=== PATIENT | female | born 1930 | race Caucasian/White ===

== ENCOUNTER 2017-03-05 09:19 | Emergency (ER) | payer MEDICARE ==
[2017-03-05 09:46] VITALS: BP 144/49
--- NOTE | 2017-03-05 09:57 | UC ---
Respiratory Complaint HPI - HPI Summary HPI Summary: Pt presents with dry cough, runny nose, and head congestion for 2 days. She tells me that she was at her daughter's house yesterday who was diagnosed with strep throat - pt does not have a sore throat today. She is also worried that she may have the flu and would like testing for this today. She has not taken anything for her discomfort. Denies fever, chills, SOB, chest pain, abdominal pain, n/v/d/c, or body aches. - History of Current Complaint Chief Complaint: UCGeneralIllness Stated Complaint: COUGH SORE THROAT Time Seen by Provider: 03/05/17 09:57 Hx Obtained From: Patient Timing: Constant Severity Initially: Mild Severity Currently: Mild Pain Intensity: 3 Pain Scale Used: 0-10 Numeric Character: Cough: Nonproductive - Allergies/Home Medications Allergies/Adverse Reactions: Allergies Allergy/AdvReac Type Severity Reaction Status Date / Time Cyclobenzaprine Allergy Intermediate Rash Verified 03/05/17 09:47 [From Flexeril] Quinine Allergy Intermediate Rash Verified 03/05/17 09:47 Home Medications: Home Medications Acetaminophen [Eq Pain Reliever] 2 tab PO BEDTIME PRN 03/05/17 [History Confirmed 03/05/17] Ascorbic Acid TAB* [Vitamin C TAB*] 1 tab PO DAILY 03/05/17 [History Confirmed 03/05/17] B-Complex Vitamins [Vitamin B Complex] 1,000 mcg PO DAILY 03/05/17 [History Confirmed 03/05/17] Clopidogrel Bisulfate [Plavix] 1 tab PO DAILY 03/05/17 [History Confirmed ] Multiple Vitamins W/ Minerals [Airborne] 3 dulce maria PO TID PRN 03/05/17 [History Confirmed 03/05/17] PMH/Surg Hx/FS Hx/Imm Hx Endocrine History: Diabetes, Dyslipidemia Cardiovascular History: Cardiac Disease, Hypertension - Surgical History Surgical History: Yes Surgery Procedure, Year, and Place: Lithotripsies [id number]. BILATERAL CATARACT REMOVAL. EYE [id number]. TRIGGER FINGER RELEASE-2006. PARATHYROID SURGERY-2002. 1958-GALLBLADDER REMOVED. 1956-D&C. 1938-T&A. 2000-Insertion of kidney stent; - Family History Known Family History: Positive: Cardiac Disease, Hypertension - Social History Occupation: Retired Lives: With Family Alcohol Use: None Substance Use Type: None Smoking Status (MU): Former Smoker Amount Used/How Often: 4-5 CIGARETTES PER DAY X 30-40 YEARS When Did the Patient Quit Smoking/Using Tobacco: 1988 - Immunization History Most Recent Influenza Vaccination: 10/2016 Review of Systems Constitutional: Negative Skin: Negative Eyes: Negative ENT: Nasal Discharge, Sinus Congestion Respiratory: Cough Cardiovascular: Negative Gastrointestinal: Negative Neurological: Negative Psychological: Negative All Other Systems Reviewed And Are Negative: Yes Physical Exam Triage Information Reviewed: Yes Appearance: Well-Appearing, No Pain Distress, Well-Nourished Vital Signs: Initial Vital Signs Temp 97.3 F 03/05/17 09:38 Pulse 55 03/05/17 09:38 Resp 16 03/05/17 09:38 BP 144/49 03/05/17 09:38 Pulse Ox 98 03/05/17 09:38 Vital Signs Reviewed: Yes Eyes: Positive: Conjunctiva Clear. Negative: Conjunctiva Inflamed, Discharge ENT: Positive: Hearing grossly normal, Pharynx normal, Nasal congestion, Nasal drainage, TMs normal, Uvula midline. Negative: Pharyngeal erythema, TM bulging , TM dull, TM red, Tonsillar swelling, Tonsillar exudate, Hoarse voice, Sinus tenderness Neck: Positive: Supple, Nontender, No Lymphadenopathy Respiratory: Positive: Chest non-tender, Lungs clear, Normal breath sounds, No respiratory distress, No accessory muscle use Cardiovascular: Positive: Pulses Normal Neurological: Positive: Alert Psychological: Positive: Age Appropriate Behavior Skin: Negative: rashes UC Diagnostic Evaluation - Laboratory O2 Sat by Pulse Oximetry: 98 Respiratory Course/Dx - Course Course Of Treatment: POC strep negative. POC influenza negative. Suspect viral illness. Advised to try conservative measures such as rest, fluids, and tylenol as needed for discomfort. - Differential Dx/Diagnosis Provider Diagnoses: Viral illness. Rhinorrhea. Cough Discharge - Discharge Plan Condition: Stable Disposition: HOME Prescriptions: Benzonatate CAP* [Tessalon 100 MG CAP*] 100 mg PO TID PRN #21 cap PRN Reason: Cough Patient Education Materials: Cold Symptoms (ED) Referrals: Romana Parnell MD [Primary Care Provider] - Additional Instructions: If you develop a fever, shortness of breath, chest pain, new or worsening symptoms - please call your PCP or go to the ED. Your blood pressure was high at todays visit. Please see your primary provider within 4 weeks for recheck and re-evaluation.
== END 2017-03-05 10:39 | disposition home or self-care (01) ==
LOC: UCEAST 09:19
DX: B34.9 Viral infection, unspecified (principal); J34.89 Other specified disorders of nose and nasal sinuses; R05 Cough; E11.9 Type 2 diabetes mellitus without complications; E78.5 Hyperlipidemia, unspecified; I11.9 Hypertensive heart disease without heart failure; Z88.8 Allergy status to other drugs, medicaments and biological substances; Z87.891 Personal history of nicotine dependence
CPT/HCPCS: 87502; 87651; 99212; G0463

== ENCOUNTER 2018-05-31 11:18 | Emergency (ER) | payer MEDICARE ==
--- NOTE | 2018-05-31 12:09 | ED ---
Abdominal Pain/Female - HPI Summary HPI Summary: This patient is an 88 year old female presenting to [facility] with a chief complaint of abdominal pain since one month ago. The pain is intermittent and she rates it a 5/10 in severity. She reports nausea, intermittent constipation and intermittent diarrhea. Pt states putting pressure on the area relieves the pain. She had a CT scan 4 days ago and it was negative. She states she does not have an appetite and has lost weight. She says eating makes her pain worse. She was referred here by her PCP Dr. Baird. She has a Hx of gallbladder and appendix removal. - History of Current Complaint Chief Complaint: EDAbdPain Stated Complaint: BELLY ACHE PER PT Time Seen by Provider: 05/31/18 11:47 Hx Obtained From: Patient Onset/Duration: Lasting Weeks, Still Present Timing: Intermittent Episode Lasting Severity Initially: Moderate Severity Currently: Moderate Pain Intensity: 5 Pain Scale Used: 0-10 Numeric Location: Diffuse, Epigastric Radiates: No Allergies/Adverse Reactions: Allergies Allergy/AdvReac Type Severity Reaction Status Date / Time cyclobenzaprine Allergy Rash And Verified 05/31/18 12:12 [From Flexeril] Itching quinine Allergy Rash And Verified 05/31/18 12:12 Itching Home Medications: Home Medications Polyethylene Glycol 3350* [Miralax*] 17 gm PO DAILY PRN 05/31/18 [History Confirmed 05/31/18] PMH/Surg Hx/FS Hx/Imm Hx Endocrine/Hematology History: Reports: Hx Diabetes Cardiovascular History: Reports: Hx Hypertension - ON MEDICATION FOR History: Reports: Hx Kidney Stones - STATES HX OF MANY Musculoskeletal History: Reports: Hx Arthritis Sensory History: Reports: Hx Cataracts - BILATERAL, Hx Contacts or Glasses - GLASSES Denies: Hx Hearing Aid Opthamlomology History: Reports: Hx Cataracts - BILATERAL, Hx Contacts or Glasses - GLASSES - Surgical History Surgery Procedure, Year, and Place: Lithotripsies [id number]. BILATERAL CATARACT REMOVAL. EYE [id number]. TRIGGER FINGER RELEASE-2006. PARATHYROID SURGERY-2002. 1958-GALLBLADDER REMOVED. 1956-D&C. 1938-T&A. 2000-Insertion of kidney stent; Hx Anesthesia Reactions: No Infectious Disease History: No Infectious Disease History: Reports: Hx Shingles Denies: Traveled Outside the [place] in Last 30 Days - Family History Known Family History: Positive: Cardiac Disease, Hypertension - Social History Alcohol Use: None Substance Use Type: Reports: None Smoking Status (MU): Former Smoker Amount Used/How Often: 4-5 CIGARETTES PER DAY X 30-40 YEARS Review of Systems Negative: Fever Positive: Abdominal Pain, Diarrhea, Nausea, Other - Constipation, loss of appetite All Other Systems Reviewed And Are Negative: Yes Physical Exam - Summary Physical Exam Summary: Appearance: The patient is well-nourished in no acute distress and in no acute pain. Skin: The skin is warm and dry and skin color reflects adequate perfusion. HEENT: The head is normocephalic and atraumatic. The pupils are equal and reactive. The conjunctivae are clear and without drainage. Nares are patent and without drainage. Mouth reveals moist mucous membranes and the throat is without erythema and exudate. The external ears are intact. The ear canals are patent and without drainage. The tympanic membranes are intact. Neck: The neck is supple with full range of motion and non-tender. There are no carotid bruits. There is no neck vein distension. Respiratory: Chest is non-tender. Lungs are clear to auscultation and breath sounds are symmetrical and equal. Cardiovascular: Heart is regular rate and rhythm. There is no murmur or rub auscultated. There is no peripheral edema and pulses are symmetrical and equal. Abdomen: The abdomen is soft and non-tender. There are normal bowel sounds heard in all four quadrants and there is no organomegaly palpated. Musculoskeletal: There is no back tenderness noted. Extremities are non-tender with full range of motion. There is good capillary refill. There is no peripheral edema or calf tenderness elicited. Neurological: Patient is alert and oriented to person, place and time. The patient has symmetrical motor strength in all four extremities. Cranial nerves are grossly intact. Deep tendon reflexes are symmetrical and equal in all four extremities. Psychiatric: The patient has an appropriate affect and does not exhibit any anxiety or depression. Triage Information Reviewed: Yes Vital Signs On Initial Exam: Initial Vitals Temp Pulse Resp BP Pulse Ox 97.0 F 67 14 169/87 98 05/31/18 11:33 05/31/18 11:33 05/31/18 11:33 05/31/18 11:33 05/31/18 11:33 Vital Signs Reviewed: Yes Diagnostics - Vital Signs Vital Signs Temp Pulse Resp BP Pulse Ox 05/31/18 11:33 97.0 F 67 14 169/87 98 - Laboratory Result Diagrams: 05/31/18 12:29 05/31/18 12:30 Lab Statement: Any lab studies that have been ordered have been reviewed, and results considered in the medical decision making process. Abdominal Pain Fem Course/Dx - Course Course Of Treatment: Ms. Soni presented complaining of epigastric pain it's been going on for several weeks. She had a CT scan 4 days ago which was negative. She was nontoxic in appearance she stable vital signs and some mild epigastric tenderness. Symptomatically and she improved greatly with IV Protonix and by mouth sucralfate. Labs were unremarkable and I recommended we give her a trial of Prilosec and follow-up with Dr. Parnell. She may need an endoscopy at some point. - Diagnoses Provider Diagnoses: Epigastric pain Discharge - Sign-Out/Discharge Documenting (check all that apply): Patient Departure - Discharge Patient Received Moderate/Deep Sedation with Procedure: No - Discharge Plan Condition: Stable Disposition: HOME Prescriptions: Omeprazole CAP (NF) [Prilosec CAP* 20 MG] 20 mg PO BID #20 cap.dr Patient Education Materials: Epigastric Pain (ED) Referrals: Romana Parnell MD [Primary Care Provider] - 2 Days Additional Instructions: Return to ED with any new or worsening symptoms. - Billing Disposition and Condition Condition: STABLE Disposition: Home - Attestation Statements Document Initiated by Mazin: Yes Documenting Scribe: Thiago Rai Provider For Whom Mazin is Documenting (Include Credential): Jon Carter MD Scribe Attestation: Thiago Chaney, scribed for Jon Carter MD on 05/31/18 at 1420. Scribe Documentation Reviewed: Yes Provider Attestation: The documentation as recorded by the Thiago rausch accurately reflects the service I personally performed and the decisions made by me, Jon Carter MD Status of Scribe Document: Viewed
[2018-05-31] MEDS ORDERED: Pantoprazole IV* 40 MG IV ONE (12:14)
[2018-05-31] MEDS ORDERED: Sucralfate TAB* 1 GM PO ONE (12:14)
[2018-05-31 12:38] LABS: ABS Basophils 0 10^3/ul (0-0.2); ABS Eosinophils 0.2 10^3/ul (0-0.6); ABS Lymphocytes 1.1 10^3/ul (1.0-4.8); ABS Monocytes 0.4 10^3/ul (0-0.8); ABS Neutrophils 3.2 10^3/ul (1.5-7.7); ABS Nucleated RBC 0 10^3/ul; Eosinophil % 3.8 %; Hematocrit 38 % (33-41); Hemoglobin 12.3 g/dL (12.0-16.0); Lymphocyte % 21.6 %; Mean Corpuscular HGB Conc 33 g/dL (31-36); Mean Corpuscular Hemoglobin 28 pg (27-31); Mean Corpuscular Volume 86 fL (80-97); Nucleated Red Blood Cells % 0; Platelet Count 284 10^3/uL (150-450); Red Blood Count 4.37 10^6 /uL (3.70-4.87); Red Cell Distribution Width 14 % (10.5-15); White Blood Count 4.9 10^3/uL (3.5-10.8)
[2018-05-31 12:54] LABS: Albumin/Globulin Ratio 1.4 (1-3); BUN/Creatinine Ratio 21.3 (8-20); C Reactive Protein 2.16 mg/L (<8.01); Calcium 9.7 mg/dL (8.6-10.3); EGFR African American 81.7 (>60); EGFR Non-African American 67.5 (>60); Globulin 2.8 g/dL (2-4); Potassium 4.4 mmol/L (3.5-5.0); Total Bilirubin 0.3 mg/dL (0.2-1.0); Total Protein 6.8 g/dL (6.4-8.9)
[2018-05-31 13:24] LABS: Urine Appearance Cloudy; Urine Bilirubin Negative (Negative); Urine Blood Negative (Negative); Urine Glucose Negative (Negative); Urine Ketones Negative (Negative); Urine Nitrite Negative (Negative); Urine Protein Negative (Negative); Urine Specific Gravity 1.004 (1.010-1.030); Urine Urobilinogen Negative (Negative)
[2018-05-31 13:28] LABS: Urine Color Straw
[2018-05-31 14:09] VITALS: BP 165/78
== END 2018-05-31 14:09 | disposition home or self-care (01) ==
LOC: ED 11:18
DX: R10.13 Epigastric pain (principal); E11.9 Type 2 diabetes mellitus without complications; I10 Essential (primary) hypertension; Z87.442 Personal history of urinary calculi; Z87.891 Personal history of nicotine dependence
CPT/HCPCS: 36415; 80053; 81003; 83605; 83690; 85025; 86140; 96374; 99283; A9270-GY

== ENCOUNTER 2018-09-19 10:05 | Inpatient (IN) | payer MEDICARE ==
--- NOTE | 2018-09-19 10:59 | ED ---
Shortness of Breath - HPI Summary HPI Summary: This pt is an 88 y/o female presenting to [facility] via EMS for SOB today. Pt reports she was doing water aerobics at [facility] when she suddenly became SOB. She has been doing water aerobics since 1988. She notes she got out of the pool and told her instructor about this. Pt is not on oxygen at home. Pt denies any cough , leg pain, calf pain. She does note some chest heaviness in the mid sternum that has resolved since then. Pt denies any pain with breathing. Currently pt is on 4L of O2 via [place] and denies any SOB. Pt denies any fever, chills, erythema of eyes, sore throat, abd pain, nausea, vomiting, dysuria, hematuria, myalgia, edema, rash, or dizziness. Pt sleeps on 2 pillows at night. Denies any weight gain and states she has lost weight instead (pt with hx healing ulcer followed up by Dr. Galvin). Denies any FHx of blood clots. PMHx: stroke in 2011, [place] in 2005, HTN. Pt is a former smoker and quit in 1988. Daughter states pt has had multiple episodes of SOB in the past couple of weeks that has required her to sit down and catch her breath. - History of Current Complaint Chief Complaint: EDShortnessOfBreath Time Seen by Provider: 09/19/18 10:18 Hx Obtained From: Patient, Family/Knife Grinder - Daughter Onset/Duration: Sudden Onset, Still Present Current Severity: Moderate Dyspnea At: Exertion Aggravating Factors: Nothing Alleviating Factors: Nothing Associated Signs & Symptoms: Chest Pain Unrelated to Cough - Allergy/Home Medications Allergies/Adverse Reactions: Allergies Allergy/AdvReac Type Severity Reaction Status Date / Time metoprolol Allergy Severe Excessive Verified 06/06/18 10:47 bradycardia quinine Allergy Severe Rash And Verified 06/06/18 10:47 Itching, Bradycardia cyclobenzaprine Allergy Intermediate Rash And Verified 06/06/18 10:47 [From Flexeril] Itching Home Medications: Home Medications Coenzyme Q10 (NF) [Th Co Q-10] 1 cap PO DAILY 09/19/18 [History Confirmed ] Om3-Dha/Epa/D3/Lutein/Zeazanth [Eye [place] Advantage/Vitam] 1 cap PO BID [History Confirmed 09/19/18] Tetrahydrozoline HCl [Eye Drops] 15 ml BOTH EYES TID 09/19/18 [History Confirmed 09/19/18] metFORMIN* [Glucophage 850 MG TAB *] 850 mg PO BID 09/19/18 [History Confirmed 09/19/18] PMH/Surg Hx/FS Hx/Imm Hx Endocrine/Hematology History: Reports: Hx Diabetes Cardiovascular History: Reports: Hx Hypertension - ON MEDICATION FOR, Hx Myocardial Infarction History: Reports: Hx Kidney Stones - STATES HX OF MANY Musculoskeletal History: Reports: Hx Arthritis Sensory History: Reports: Hx Cataracts - BILATERAL, Hx Contacts or Glasses - GLASSES Denies: Hx Hearing Aid Opthamlomology History: Reports: Hx Cataracts - BILATERAL, Hx Contacts or Glasses - GLASSES Neurological History: Reports: Hx CVA - Surgical History Surgical History: Yes Surgery Procedure, Year, and Place: Lithotripsies [id number]. BILATERAL CATARACT REMOVAL. EYE [id number]. TRIGGER FINGER RELEASE-2006. PARATHYROID SURGERY-2002. 1958-GALLBLADDER REMOVED. 1956-D&C. 1938-T&A. 2000-Insertion of kidney stent; Hx Anesthesia Reactions: No Infectious Disease History: No Infectious Disease History: Reports: Hx Shingles Denies: Traveled Outside the [place] in Last 30 Days - Family History Known Family History: Positive: Cardiac Disease, Hypertension - Social History Alcohol Use: None Substance Use Type: Reports: None Smoking Status (MU): Former Smoker Amount Used/How Often: 4-5 CIGARETTES PER DAY X 30-40 YEARS Review of Systems Negative: Fever, Chills Negative: Erythema Negative: Sore Throat Positive: Chest Pain Positive: Shortness Of Breath. Negative: Cough Negative: Abdominal Pain, Vomiting, Nausea Negative: dysuria, hematuria Negative: Myalgia, Edema Negative: Rash Neurological: Other - NEGATIVE: dizziness All Other Systems Reviewed And Are Negative: Yes Physical Exam - Summary Physical Exam Summary: Constitutional: Well-developed, Well-nourished, Alert. (-) Distressed Skin: Warm, Dry HENT: Normocephalic; Atraumatic Eyes: Conjunctiva normal Neck: Musculoskeletal ROM normal neck. (-) JVD, (-) Stridor, (-) Tracheal deviation Cardio: Rhythm regular, rate normal, Heart sounds normal; Intact distal pulses; The pedal pulses are 2+ and symmetric. Radial pulses are 2+ and symmetric. (-) Murmur Pulmonary/Chest wall: Effort normal. (-) Respiratory distress, (-) Wheezes, (-) Rales Abd: Soft, (-) tenderness, (-) Distension, (-) Guarding, (-) Rebound Rectal Exam: DALILA Ingram, present as female senior benefits specialist. Empty vault. No long blood. Musculoskeletal: (-) Edema Lymph: (-) Cervical adenopathy Neuro: Alert, Oriented x3 Psych: Mood and affect Normal Triage Information Reviewed: Yes Vital Signs On Initial Exam: Initial Vitals Temp Pulse Resp BP Pulse Ox 97.3 F 74 12 162/90 100 09/19/18 10:10 09/19/18 10:10 09/19/18 10:10 09/19/18 10:10 09/19/18 10:10 Vital Signs Reviewed: Yes Diagnostics - Vital Signs Vital Signs Temp Pulse Resp BP Pulse Ox 09/19/18 10:10 97.3 F 74 12 162/90 100 - Laboratory Result Diagrams: 09/19/18 10:50 09/19/18 10:50 Lab Statement: Any lab studies that have been ordered have been reviewed, and results considered in the medical decision making process. - Radiology Chest XR Radiology Interpretation Completed By: Radiologist Summary of Radiographic Findings: IMPRESSION: No evidence for active cardiopulmonary disease. Dr. Hagan has reviewed this report. - EKG 10:20 Cardiac Rate: NL - at 62 bpm EKG Rhythm: Sinus Rhythm Summary of EKG Findings: No STEMI. Re-Evaluation - Re-Evaluation First Eval Re-Evaluation Time: 12:30 Comment: Performed rectal exam with DALILA Ingram, in assistance. Patient with empty vault and no long blood. Course/Dx - Course Assessment/Plan: Pt is an 88 y/o female presenting to [facility] via EMS for SOB today. Pt reports she was doing water aerobics at [facility] when she suddenly became SOB. She has been doing water aerobics since 1988. Pt is not on oxygen at home. Pt denies any cough, leg pain, calf pain. She does note some chest heaviness in the mid sternum that has resolved since then. Test results remarkable for hemoglobin of 10.6, hematocrit of 33, lactic acid of 3.0, troponin of 0.63. Chest XR shows no evidence for active cardiopulmonary disease. In the ED course the pt was given aspirin. Discussed with Dr. Carbajal, invas tech, who reports he wants to make sure pt is cleared by GI before pursuing a cardiac work up. Discussed with Dr. Ocampo, hospitalist, who accepted the pt for admission. - Diagnoses Provider Diagnoses: NSTEMI (non-ST elevated myocardial infarction), Anemia - Physician Notifications Discussed Care of Patient With: Maco Carbajal Time Discussed With Above Provider: 12:14 Instructed by Provider To: Other - Discussed with Dr. Carbajal, invas tech, who reports he wants to make sure pt is cleared by GI before pursuing a cardiac work up. [12:32] Discussed with Dr. Ocampo, hospitalist, who accepted the pt for admission. - Critical Care Time Critical Care Time: 30-74 min - 45 minutes Discharge - Sign-Out/Discharge Documenting (check all that apply): Patient Departure - Admit [place] [facility] Patient Received Moderate/Deep Sedation with Procedure: No - Discharge Plan Condition: Stable Disposition: ADMITTED TO [facility] Referrals: Romana Parnell MD [Primary Care Provider] - - Attestation Statements Document Initiated by Scribe: Yes Documenting Scribe: Veronica Leblanc Provider For Whom Scribe is Documenting (Include Credential): Hakeem Hagan MD Scribe Attestation: Veronica Chaney, scribed for Hakeem Hagan MD on 09/19/18 at 1244. Status of Scribe Document: Viewed
[2018-09-19 11:02] LABS: ABS Eosinophils 0.2 10^3/ul (0-0.6); ABS Lymphocytes 1.4 10^3/ul (1.0-4.8); ABS Monocytes 0.4 10^3/ul (0-0.8); ABS Neutrophils 2.6 10^3/ul (1.5-7.7); Eosinophil % 3.9 %; Hematocrit 33 % (35-47); Hemoglobin 10.6 g/dL (12.0-16.0); Lymphocyte % 31.1 %; Mean Corpuscular HGB Conc 32 g/dL (31-36); Mean Corpuscular Hemoglobin 26 pg (27-31); Mean Corpuscular Volume 80 fL (80-97); Mean Platelet Volume 8.2 fL (7.4-10.4); Platelet Count 248 10^3/uL (150-450); Red Blood Count 4.09 10^6 /uL (3.70-4.87); Red Cell Distribution Width 15 % (10-15); White Blood Count 4.6 10^3/uL (3.5-10.8)
[2018-09-19 11:19] LABS: ALT 13 U/L (7-52); AST 21 U/L (13-39); Albumin/Globulin Ratio 1.5 (1-3); Alkaline Phosphatase 57 U/L (34-104); Anion Gap 10 mmol/L (2-11); BUN/Creatinine Ratio 20.7 (8-20); Blood Urea Nitrogen 17 mg/dL (6-24); CO2 Carbon Dioxide 25 mmol/L (22-32); Calcium 9.3 mg/dL (8.6-10.3); Chloride 104 mmol/L (101-111); EGFR African American 79.4 (>60); EGFR Non-African American 65.6 (>60); Globulin 2.7 g/dL (2-4); Glucose 122 mg/dL (70-100); Sodium 139 mmol/L (135-145); Total Protein 6.7 g/dL (6.4-8.9)
[2018-09-19 11:28] LABS: Troponin I 0.63 ng/mL (<0.04)
[2018-09-19] MEDS ORDERED: Aspirin 81 mg CHEW TAB* 81 MG TAB.CHEW PO ONE (12:16)
[2018-09-19 15:12] LABS: Troponin I 0.59 ng/mL (<0.04)
--- NOTE | 2018-09-19 15:29 | ECHO ---
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 Abnormal EKG. Aortic Valve Disorder. History: Cerebrovascular accident. PMH: Myocardial infarction. Risk factors: Former tobacco use. Hypertension. Diabetes mellitus. Conclusions Summary: - Left ventricle: There is moderate concentric hypertrophy. Systolic function is mildly reduced. The estimated ejection fraction is 45-50%. Systolic function is worse from the study of May 2016. Features are consistent with a pseudonormal left ventricular filling pattern, with concomitant abnormal relaxation and increased filling pressure (grade 2 diastolic dysfunction). - Left atrium: The atrium is severely dilated. - Mitral valve: The findings are consistent with mild stenosis. There is moderate regurgitation. - Aortic valve: The findings are consistent with severe stenosis. Stenosis severity has increased in comparison with the study of May 2016. There is mild regurgitation. The peak systolic velocity is 5 m/sec. The mean systolic gradient is 61.0 mm Hg. The peak systolic gradient is 100.0 mm Hg. The LVOT to aortic valve VTI ratio is 0.2. The valve area by the peak velocity method is 0.66 cm^2. The valve area by the mean velocity method is 0.7 cm^2. - Tricuspid valve: There is mild regurgitation. - Pulmonic valve: There is trace to mild regurgitation. Recommendations: Decrease in ejection fraction from 60-65% last time with new wall motion abormalities and progression in aortic stenosis. Consider catheterization for possible TAVR and PCI. Study data: Transthoracic echocardiogram. Procedure: Transthoracic echocardiography was performed. Image quality was good. Complete 2D, spectral Doppler, and color flow Doppler. Location: Emergency department. Patient status: Inpatient. Patient room number: ED-10. The previous study was not available, so comparison is made to the report of May 2016. Rhythm: Normal sinus rhythm with PAC's. Findings Left ventricle: The cavity size is normal. There is moderate concentric hypertrophy. Systolic function is mildly reduced. The estimated ejection fraction is 45-50%. Systolic function is worse from the study of May 2016. Regional wall motion abnormalities: Hypokinesis of the mid-apical anterior, mid anteroseptal, mid-apical inferior, basal-mid inferolateral, mid anterolateral, apical septal, apical lateral, and apical myocardium. Features are consistent with a pseudonormal left ventricular filling pattern, with concomitant abnormal relaxation and increased filling pressure (grade 2 diastolic dysfunction). Right ventricle: The cavity size is normal. Systolic function is normal. Systolic pressure is within the normal range. Ventricular septum: Thickness is mildly increased. Left atrium: The atrium is severely dilated. Right atrium: The atrium is at the upper limits of normal in size. Mitral valve: The posterior mitral valve annulus appears moderately calcified. The findings are consistent with mild stenosis. There is moderate regurgitation. Aortic valve: Not well visualized. The leaflets are moderately calcified. The findings are consistent with severe stenosis. Stenosis severity has increased in comparison with the study of May 2016. There is mild regurgitation. Tricuspid valve: The leaflets are normal thickness. There is no evidence of stenosis. There is mild regurgitation. Pulmonic valve: The leaflets are normal thickness. There is no evidence of stenosis. There is trace to mild regurgitation. Aorta: Ascending aorta: The ascending aorta is appears normal. The aortic root appears normal. The aortic arch appears normal. Pericardium: There is no significant pericardial effusion. Pulmonary arteries: The main pulmonary artery is normal-sized. Systolic pressure is within the normal range. Systemic veins: Inferior vena cava: The vessel is normal in size. There is (>= 50%) respiratory change in the IVC dimension. Measurements Left ventricle Value Ref Aortic valve Value Ref NOE, LAX 4.0 cm 3.8 - 5.2 Leni diam, ED 2.2 cm ----- ESD, LAX 2.5 cm 2.2 - 3.5 Peak v, S 5 m/sec ----- FS, LAX 37 % 27 - 45 VTI, S 126.0 cm ----- PW, ED, LAX (H) 1.4 cm 0.6 - 0.9 Mean grad, S 61.0 mm Hg ----- FS 37 % 27 - 45 Peak grad, S 100.0 mm Hg ----- PW, ED (H) 1.4 cm 0.6 - 0.9 LVOT/AV, VTI ratio 0.2 ----- E', lat leni, TDI (L) 4.6 cm/sec >=10.0 MELISA, VTI 0.62 cm^2 --- -- E/e', lat leni, 20 MELISA, Vmax 0.66 cm^2 ----- TDI E', med leni, TDI (L) 3.9 cm/sec >=7.0 Mitral valve Value Ref E/e', med leni, 24 Peak E 0.92 m/sec ----- TDI Peak A 1.85 m/sec ----- E', avg, TDI 4.3 cm/sec Decel time 384 ms ----- E/e', avg, TDI (H) 22 <=14 PHT 186 ms --- -- Mean grad, D 3.0 mm Hg ----- LVOT Value Ref Peak grad, D 14.0 mm Hg ----- Diam, S 2.00 cm Peak E/A ratio 0.5 ----- Area 3.1 cm^2 MVA, PHT 1.2 cm^2 ----- Peak mickie, S 1.05 m/sec VTI, S 25.0 cm Pulmonic valve Value Ref Mean grad, S 3 mm Hg Peak v, S 1.32 m/sec ----- SV 80 ml Peak grad, S 7.0 mm Hg ----- SV/bsa 51 ml/m^2 DC v, ED 0.92 m/sec ----- Ventricular septum Value Ref Tricuspid valve Value Ref IVS, ED (H) 1.4 cm 0.6 - 0.9 TR peak v 2.42 m/sec <=2.8 Peak RV-RA grad, S 23 mm Hg ----- Right ventricle Value Ref AW thickness, ED (H) 0.8 cm 0.1 - 0.5 Aortic root Value Ref NOE, LAX 3.0 cm Root diam 2.7 cm <3.8 NOE minor ax, A4C (H) 3.8 cm 1.9 - 3.5 mid Ascending aorta Value Ref Pressure, S 26 mm Hg AAo AP diam, S 3.5 cm ----- Left atrium Value Ref Aortic arch Value Ref AP dim, ES (H) 4.40 cm 2.70 - Arch diam 1.9 cm ----- 3.80 ML dim, A4C 3.9 cm Decending aorta Value Ref SI dim, A4C 6.3 cm Maggy peak mickie 0.74 m/sec ----- Vol/bsa, ES, 1-p (H) 45 ml/m^2 11 - 40 A4C Pulmonary artery Value Ref Vol/bsa, ES, A/L (H) 68 ml/m^2 16 - 34 Pressure, S 19.0 mm Hg ----- Right atrium Value Ref Inferior vena cava Value Ref SI dim, ES 5.3 cm 3.4 - 5.3 Diam 1.7 cm ----- ML dim, ES, A4C 4.1 cm 2.6 - 4.4 SI dim, ES, A4C 5.3 cm 3.4 - 5.3 Estimated RAP 3 mm Hg Legend: (L) and (H) srinivas values outside specified reference range. Prepared and electronically signed by Maco Carbajal MD 09/19/2018 15:29
--- NOTE | 2018-09-19 15:57 | CONS ---
CC: Dr. Romana Parnell; Dr. Merida * CARDIOLOGY CONSULTATION: DATE OF CONSULT: 09/19/18 PATIENT OF: Dr. Romana Parnell and Dr. Merida. REASON FOR EVALUATION: Shortness of breath, elevation in troponin, abnormal EKG. HISTORY OF PRESENT ILLNESS: This is a very pleasant 88-year-old woman who lives on her own and is surprisingly active given her age. She is accompanied by her daughter, Claudia, and her son-in-law, Antonio. She reports that she has been fairly active, but limited by achiness in her legs and walking less over some unspecified period of time. Also she says over the last week, she has had a few episodes of feeling shortness of breath with exertion. Two episodes occurred over the last 2 weeks where she was exerting herself in the house cleaning and noticed that she was short of breath and felt her heart beating fast and regular. She stopped for 10 minutes and her symptoms resolved and she was able to resume her activities. Today, she was in her water aerobics class at the , she said she goes 3 times a week. She says Mondays and Fridays are more vigorous days. She usually spends an hour and a half to 2 hours in the pool. She warms up with walking before the class, the [place] on Mondays, and does some walking on Wednesdays. Today is a more vigorous exercise. She said during the pool activity, she developed increased heart rate, shortness of breath, and asked to leave the pool. She got out of the pool and sat in the locker room for a few minutes, and because of ongoing symptoms, her daughter was called to call the ambulance. By the time the ambulance crew arrived, she was feeling better. She was brought to the emergency room. She was noted to have some sinus rhythm with diffuse ST depressions as well as an elevated troponin of 0.63 at 10:50 a.m. Also, her lactic acid was high at 3. She denies syncope or chest pain. No orthopnea or peripheral edema. She does report the legs are achy and cool. She denies previous history of arrhythmias. PAST MEDICAL HISTORY: Significant for aortic stenosis which was felt to be critical back in 2017, but she was asymptomatic until recently. She also has a history of coronary artery disease with a [id number] IN in the setting of urosepsis in 2000. She had a stress test in 2014 which revealed no evidence of ischemia. She has a history of diabetes, hypertension, hyperlipidemia, and gastric ulcer documented by endoscopy in June [address] Galvin, it was felt that that was healing. She denies any hematemesis or hematochezia. No nausea or vomiting. She did have weight loss at that time of 15 pounds. PAST SURGICAL HISTORY: Includes parathyroidectomy in 2002, lithotripsy in 2007 , cholecystectomy in 1958, trigger finger release in 2006, cataract in 2007, D and C in 1956, appendectomy in 1958, blepharoplasty in 2009, tonsillectomy in 1938, kidney stent in 2000, D and C in 1956 for miscarriage. ALLERGIES: Include FLEXERIL and QUININE which results in bradycardia and METOPROLOL results in bradycardia. SOCIAL HISTORY: She is , lives alone. She drives locally. She had a brother who of liver disease and amyloid. She had 4 children, 2 are and 2 are alive. No premature coronary artery disease. She denies alcohol. She denies caffeine use. 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 REVIEW OF SYSTEMS: Review of systems x10 was negative except as above. PHYSICAL EXAM: She is a well-developed, well-nourished woman who appears younger than her stated age. Blood pressure 126/89, pulse is 79, O2 sats 98% on 2 L. No significant JVD. Carotids 2+ without bruits, although she has a history of carotid disease. No cervical adenopathy. No thyromegaly. Extraocular muscles intact. Arcus senilis. Carotids delayed and diminished. Cardiac Exam: S1, S2 with a 4/6 systolic ejection murmur heard at the apex radiating across the precordium, single S2. Chest was clear with no CVAT. There was kyphosis. Abdominal Exam: Bowel sounds present, nontender. Femoral pulses diminished with a left femoral bruit. Distal pulses were absent on the left and 1+ on the right. No edema. Negative Homans sign. Motor strength is 5 /5 bilaterally. Deep tendon reflexes 2/4. Alert and oriented x3. DIAGNOSTIC STUDIES/LAB DATA: EKG as mentioned above revealed sinus rhythm, poor R- wave progression, diffuse inferolateral ST depressions, somewhat more pronounced compared to June. Chest x-ray revealed no evidence for active cardiopulmonary disease. Her nuclear stress test, pharmacologic, from April 2014 revealed no evidence of ischemia or infarct. Her echo from May 2016 revealed moderate LVH, EF of 60% to 65%, left atrium was severely dilated, right atrium moderately dilated, critical aortic stenosis , mild MR, mild mitral stenosis, mild to moderate pulmonary hypertension, mild to moderate pulmonary regurgitation. Compared to 05/17/15, the had advanced from 0 to critical. Her peak velocity was 5.5 m/second across the aortic valve. LVOT velocity was 1.4. Valve area was 0.81. PA pressure was 41. Her carotid study from 05/10/14 showed severe stenosis of left ICA bulb in the range of 60% to 79%, mild stenosis of the right coronary bulb less than 50%, little change compared to May 2010. Her laboratories include a BUN of 17, creatinine of 0.82, troponin of 0.63, D- dimer less than 200. White count of 4.6, hemoglobin of 10.6, hematocrit of 33, platelet count of 248, and her hematocrit had been 37 on July 31 and 41 in April 2017. Her EGD from June 29 revealed a small hiatal hernia, a gastric bezoar, and an ulcerated area of the gastric antrum. IMPRESSION AND PLAN: My impression is that Ms. Soni has history of severe aortic stenosis, [id number] myocardial infarction in 2000, now presents with episodes of dyspnea on exertion and now has bump in her troponin and more pronounced EKG changes. This may represent progression of her coronary artery disease, acute coronary syndrome. Also, I am concerned that she now has developed symptomatic aortic stenosis which puts her at increased risk for morbidity and mortality. She also may have paroxysmal atrial arrhythmias which may be contributing to decompensation. I did discuss with her and her daughter and son-in- law at the bedside that she may potentially need intervention for her valve and we discussed about the potential for surgery or percutaneous revascularization with transcatheter aortic valve replacement. She also has anemia which may increase the risk of anticoagulation and prolonged dual- antiplatelet therapy. For the time being, I recommend the followin. I would suggest holding her afterload reducing agents which may contribute to hemodynamic decompensation with exertion in the setting of severe aortic stenosis. 2. She is to have a repeat echo. 3. I follow serial EKGs and troponins. 4. Would follow her hematocrit carefully on her current regimen and consider adding heparin if her condition is otherwise stable in terms of bleeding. 5. Would consider repeat consultation with Dr. Galvin concerning whether she is appropriate candidate for long-term dual antiplatelet therapy and anticoagulation. 6. Would try to maintain a potassium over 4. 7. Would follow repeat troponin and lactic acid. 8. Would avoid exertion at this point in time. Would continue telemetry monitoring and observe for tachyarrhythmias. 9. She has a tendency towards bradycardia on METOPROLOL and options for treating her tachyarrhythmias and hypertension are limited by her critical aortic stenosis and tendency towards bradycardia. I think she is a reasonable candidate for consideration of transcatheter aortic valve replacement if she is otherwise okay from a gastrointestinal bleeding standpoint and Oncology standpoint. I advised her that she needs to remain in the hospital to be further evaluated given the potential life threatening nature of symptomatic severe aortic stenosis or acute coronary syndrome. Further recommendations will depend on her clinical course. [id number]/[facility] #: [id number] SAMIR
[2018-09-19] MEDS ORDERED: Acetaminophen TAB* 325 MG PO PRN (16:21)
[2018-09-19] MEDS ORDERED: diPHENhydraMINE PO* 25 MG PO PRN (16:23)
[2018-09-19 16:47] LABS: % Iron Saturation 10 % (15-55); Iron 43 ug/dL (50-212); Total Iron Binding Capacity 420 mcg/dL (250-450); Transferrin 300 mg/dL (203-362)
[2018-09-19 18:51] LABS: INR 1.05 (0.82-1.09)
[2018-09-19 19:11] LABS: Troponin I 0.85 ng/mL (<0.04)
[2018-09-19 19:31] LABS: Activated Partial Thrombo Time 33.5 seconds (26.0-38.0)
[2018-09-19] MEDS: Pantoprazole TAB * 40 MG TAB PO SCH (20:00)
[2018-09-19] MEDS ORDERED: Heparin VIAL(*) 5000 UNITS/ML VIAL (FIVE THOUSAND) ONE (20:08)
[2018-09-19] MEDS: Heparin DRIP 25,000 UNITS(*) 25,000 UNITS/500 ML BAG IV SCH (20:12)
--- NOTE | 2018-09-19 20:51 | HP ---
CC: Dr. Romana Parnell; Dr. Carbajal * HISTORY AND PHYSICAL: DATE OF ADMISSION: 09/19/18 PROVIDER: Dasha Canseco NP. PRIMARY CARE PROVIDER: Dr. Romana Parnell. ATTENDING PHYSICIAN WHILE IN THE HOSPITAL: Dr. Boone Ocampo * (dictated by Dasha Canseco NP). CHIEF COMPLAINT: Shortness of breath, palpitations. HISTORY OF PRESENT ILLNESS: Ms. Soni is an 88-year-old female with a past medical history of an IL in 2000, hypertension, history of CVA, type 2 diabetes , and hyperlipidemia, recent diagnosis of ulcer, who presented to the emergency room after becoming acutely short of breath while doing water aerobics at the . The patient reports that she was in water aerobics class, became short of breath, ended her class early due to the fact she was unable to catch her breath. She did report that she felt like her heart rate was racing. She reports that her shortness of breath did subside after a while, but she reports she felt shortness of breath that lasted approximately 1 hour. She denied any chest pain, dizziness, or diaphoresis during this episode. Due to her symptoms , the patient was brought to the emergency room for further evaluation. The patient denies any recent fever, chills, unintended weight loss, chest pain, or edema. Denies any cough or hemoptysis. She does report that she had shortness of breath for approximately one month. She does report that she was usually able to walk down her driveway and back to her house without any difficulty and recently she had to stop alf during the walk to catch her breath before returning to the house. She denies any nausea, vomiting, or diarrhea. She denies any abdominal pain at this time. She does report that her abdominal pain subsided approximately 2 weeks ago. She denies any gross hematuria, dysuria, focal weakness, or sensory loss. Denies any visual complaints, dysphagia, arthralgias, myalgias, rashes, lesions, or open sores. She denies any black or tarry stools, any blood in the urine, or vomiting of blood. The patient does report that she does have a healing ulcer, for which she recently had an upper endoscopy with Dr. Galvin. At that time, she was placed on omeprazole 20 mg p.o. twice daily she said approximately 2 weeks ago that pain did subside and she has been feeling better and has had no further weight loss and her weight has been stable. She reports she actually has gained 5 pounds back. Due to her shortness of breath and elevated troponin, we were asked to see and evaluate her for admission. PAST MEDICAL HISTORY: Significant for IL in 2000, hypertension, history of CVA , diabetes type 2, hyperlipidemia. PAST SURGICAL HISTORY: 1. Lithotripsy. 2. Tonsil and adenoids removed. 3. Cholecystectomy. 4. Parathyroid removed. 5. Trigger finger release. 6. Bilateral upper blepharoplasty. HOME MEDICATIONS: Include: 1. Omeprazole 20 mg p.o. b.i.d. 2. Plavix 75 mg p.o. daily. 3. Multivitamin 1 tablet p.o. daily. 4. Zocor 20 mg p.o. daily. 5. Magnesium oxide 500 mg p.o. daily. 6. Ramipril 10 mg p.o. daily. 7. Amlodipine 5 mg p.o. daily. 8. Benadryl 2 tabs at bedtime. 9. Systane 1-Caps p.o. b.i.d. 10. Blink eye drops. ALLERGIES: Allergy to QUININE and FLEXERIL. FAMILY HISTORY: Mother, no reported history of coronary artery disease or diabetes. Father had pancreatic cancer. SOCIAL HISTORY: The patient reports that she quit smoking in 1988. Denies any alcohol or illicit drug use. She lives alone and walks with a cane. Surrogate decision maker in the event she is unable to make her own decisions is her daughter, Claudia. She is a DNR/DNI. MOLST form has been completed and placed on the chart. REVIEW OF SYSTEMS: A 14-point review of systems was completed and all pertinent positives are mentioned in the HPI. PHYSICAL EXAMINATION GENERAL: At this time, Ms. Soni is alert and oriented, resting on the stretcher in the emergency room. She is in no acute distress. She appears her stated age. She is well developed, well nourished. VITAL SIGNS: Blood pressure 154/89, heart rate 64, respirations are 21, O2 saturation 99%, temperature was 98.2. HEENT: Head is atraumatic, normocephalic. Eyes: EOMs are intact. Sclerae are anicteric and not pale. Oral mucosa appeared to be moist. NECK: Supple. LUNGS: Clear to auscultation bilaterally. There are no wheezes, rales, or rhonchi. CARDIAC: S1, S2. She does have a murmur. There are no rubs or gallops. ABDOMEN: Soft and nontender. Bowel sounds are present x4. EXTREMITIES: She is able to move all 4 extremities. There is no clubbing or cyanosis. There is no edema noted to her extremities. NEUROLOGIC: She is awake, alert, and oriented x3. Speech is clear. Thought process is intact. There is no gross focal deficit. SKIN: Intact. DIAGNOSTIC STUDIES/LAB DATA: WBCs are 4.6, RBCs 4.09, hemoglobin 10.6, hematocrit 33, platelet count 248. INR is 1.05, D-dimer was less than 200. Sodium 139, potassium 4.0, chloride 104, carbon dioxide 25, anion gap 10, BUN was 17, creatinine 0.82, glucose was 122. Lactic acid initially was 3.0, repeat was 1.3. Calcium 9.3. Iron was 43, TIBC was 420, saturation was 10, unsaturated was 405, transferrin was 300. AST was 21, ALT was 13, alkaline phosphatase was 53. Initial troponin was 0.63, repeat was 0.59. She had a chest x-ray, radiologist's impression: No active cardiopulmonary disease. She had an electrocardiogram which showed sinus rhythm at a rate of 60 with a prolonged QTc of 490. ST depressions noted in V4, V5. T-wave inversion in lead III. She had a transthoracic echocardiogram, which showed left ventricular , there is a moderate concentric hypertrophy, systolic function is mildly reduced, estimated ejection fraction is 45% to 50%. Systolic function is worst on the study from when compared to May 2016. Features consistent with pseudonormal left ventricular filling pattern with abnormal relaxation with increased filling pressure, grade 2 diastolic dysfunction. Left atrium is severely dilated. Mitral valve findings consistent with mild stenosis. There is moderate regurgitation. Aortic valve consistent with severe stenosis, has severely increased in comparison with study from May 2016. There is mild regurgitation. The peak systolic velocity is 5 m/sec. The mean systolic gradient is 61 mmHg. The peak systolic gradient is 100.0 mmHg. The LVOT to the aortic valve VTI ratio is 0.2. The valve area, peak velocity method, is 0.66 cm. Recommend cardiac catheterization for a possible TAVR and PCI. ASSESSMENT AND PLAN: Ms. Soni is an 88-year-old female with past medical history significant for history of an myocardial infarction, hypertension, history of cerebrovascular accident, diabetes, and hyperlipidemia, who presented to the emergency room after becoming acutely short of breath while in water aerobics. She was found to have progressively worsening aortic stenosis. She will be admitted inpatient for: 1. Shortness of breath. I suspect her shortness of breath could be related to her severe aortic stenosis versus acute coronary syndrome. She was seen and evaluated by Dr. Carbajal from Cardiology who has recommended to stop ramipril and amlodipine. He has recommended that the patient be placed on aspirin, Plavix , and a heparin drip. She did have a transthoracic echocardiogram that showed worsening aortic stenosis. Due to these findings, Dr. Carbajal has recommended the patient to have a TAVR and a cardiac catheterization. 2. Elevated troponin. The patient appears to have a non-ST elevation myocardial infarction. She was given aspirin in the emergency room at 162 mg. She should continue on aspirin and Plavix, and I will start her on a heparin drip per protocol. Dr. Carbajal has advised against use of beta-blockers as the patient does have severe bradycardia with the use of beta-blockers, so she will not be started on a beta-elaine at this time. 3. Anemia. The patient does have a mild decrease in her H and H. She did have a stool for guaiac that was negative. I did consult Dr. Galvin as the patient does have a recent history of gastric ulcer and concerns for this bleeding being on anticoagulation. Dr. Galvin felt it was okay to proceed with heparin drip at this time, so a heparin drip will be started. We will continue to trend her H and H and watch for signs of bleeding. Should the patient develop bleeding, we will stop her heparin drip at that time. 4. Hypertension. Dr. Carbajal from Cardiology has recommended to discontinue amlodipine and ramipril. We will just continue to monitor her blood pressure at this time. 5. Diabetes. The patient does take Glucophage at home. I will hold her Glucophage. I will place her on fingersticks a.c. and monitor her blood sugar for the need to initiate lispro sliding scale. 6. FEN: She can have a cardiac diet. No caffeine. 7. Code status: She is a DNR/DNI. 8. DVT prophylaxis: She will be on a heparin drip. 9. Disposition: The patient will be placed on [address] [place] [address] telemetry. TIME SPENT: Time spent on this admission was approximately 60 minutes, greater than half that time was spent at the bedside reviewing events leading thus far to her hospitalization, performing my physical exam, and reviewing my plan of care. I have discussed this with my attending Dr. Boone Ocampo; he is in agreement with my plan. DASHA CANSECO, DESTINI [id number]/[facility] #: [id number] SAMIR
[2018-09-19] MEDS ORDERED: Atorvastatin* 10 MG TAB PO SCH (21:00)
[2018-09-19 22:29] LABS: Urine Appearance Clear; Urine Bacteria Absent (Absent); Urine Bilirubin Negative (Negative); Urine Blood Negative (Negative); Urine Color Yellow; Urine Glucose Negative (Negative); Urine Ketones Negative (Negative); Urine Nitrite Negative (Negative); Urine Protein Negative (Negative); Urine Red Blood Cell Absent (Absent); Urine Specific Gravity 1.011 (1.010-1.030); Urine Squamous Epithelial Cell Present (Absent); Urine Urobilinogen Negative (Negative); Urine White Blood Cell 2+(11-20/hpf) (Absent)
[2018-09-19 23:05] LABS: Troponin I 0.82 ng/mL (<0.04)
[2018-09-20 03:20] LABS: Troponin I 0.85 ng/mL (<0.04)
[2018-09-20 03:35] LABS: Activated Partial Thrombo Time 121.2 seconds (26.0-38.0)
[2018-09-20 07:05] LABS: Anion Gap 5 mmol/L (2-11); CO2 Carbon Dioxide 29 mmol/L (22-32); Calcium 9.4 mg/dL (8.6-10.3); Chloride 104 mmol/L (101-111); Potassium 4.1 mmol/L (3.5-5.0); Sodium 138 mmol/L (135-145)
[2018-09-20 07:11] LABS: BUN/Creatinine Ratio 17.1 (8-20); Blood Urea Nitrogen 14 mg/dL (6-24); Cholesterol 117 mg/dL; EGFR African American 79.4 (>60); EGFR Non-African American 65.6 (>60); Glucose 100 mg/dL (70-100); HDL Cholesterol 41.7 mg/dL; LDL Cholesterol 40 mg/dL; Triglycerides 176 mg/dL
[2018-09-20 07:37] LABS: ABS Basophils 0.1 10^3/ul (0-0.2); ABS Eosinophils 0.3 10^3/ul (0-0.6); ABS Lymphocytes 1.7 10^3/ul (1.0-4.8); ABS Monocytes 0.4 10^3/ul (0-0.8); ABS Neutrophils 2.3 10^3/ul (1.5-7.7); Eosinophil % 5.7 %; Hematocrit 31 % (35-47); Lymphocyte % 35.6 %; Mean Corpuscular HGB Conc 33 g/dL (31-36); Mean Corpuscular Hemoglobin 26 pg (27-31); Mean Corpuscular Volume 80 fL (80-97); Mean Platelet Volume 8.9 fL (7.4-10.4); Nucleated Red Blood Cells % 0.1; Platelet Count 219 10^3/uL (150-450); Red Blood Count 3.83 10^6 /uL (3.70-4.87); Red Cell Distribution Width 15 % (10-15); White Blood Count 4.7 10^3/uL (3.5-10.8)
[2018-09-20 08:38] LABS: INR 1.15 (0.82-1.09)
[2018-09-20] MEDS ORDERED: Aspirin EC TAB* 81 MG TAB.EC PO SCH (09:00)
[2018-09-20] MEDS ORDERED: MAGNESIUM OXIDE 500 MG PO SCH (09:00)
[2018-09-20] MEDS ORDERED: Clopidogrel TAB* 75 MG PO SCH (09:00)
[2018-09-20] MEDS ORDERED: Cholecalciferol TAB* 1000 UNITS PO SCH (09:00)
[2018-09-20] MEDS ORDERED: Multivitamins/Minerals TAB PO SCH (09:00)
[2018-09-20] MEDS ORDERED: Cyanocobalamin TAB* 500 MCG PO SCH (09:00)
[2018-09-20] MEDS: Pantoprazole TAB * 40 MG TAB PO SCH (09:19)
[2018-09-20 09:48] LABS: Troponin I 0.63 ng/mL (<0.04)
[2018-09-20 11:40] VITALS: BP 125/93
[2018-09-20] MEDS ORDERED: Heparin VIAL(*) 5000 UNITS/ML VIAL (FIVE THOUSAND) ONE (11:55)
[2018-09-20] MEDS: Heparin DRIP 25,000 UNITS(*) 25,000 UNITS/500 ML BAG IV SCH (11:58)
--- NOTE | 2018-09-20 12:37 | TRS ---
CC: Dr. Romana Parnell * TRANSFER SUMMARY: DATE OF ADMISSION: 09/19/18 DATE OF DISCHARGE: 09/20/18 PRIMARY CARE PROVIDER: Dr. Romana Parnell. ATTENDING PHYSICIAN WHILE IN THE HOSPITAL: Dr. Bel Hernandez.* (DICTATED BY VIKI ACHARYA) PRIMARY TRANSFER DIAGNOSES: 1. Critical aortic stenosis. 2. Elevated troponin. 3. Possible [id number] myocardial infarction. 4. New heart failure with reduced ejection fraction. SECONDARY DISCHARGE DIAGNOSES: 1. History of [id number] myocardial infarction in 2000. 2. Diabetes. 3. Hypertension. 4. Hyperlipidemia. 5. Recent ongoing gastric ulcer diagnosed in June 2018. 6. Peptic ulcer. STUDIES DONE WHILE IN THE HOSPITAL: Electrocardiogram from 09/19/[address]- segment depression in the lateral leads, T-wave inversion in III, no ST segment elevation, rate of 62, QTc of 504, left atrial enlargement, no other hypertrophy. Repeat EKG shows no significant changes. Compared to previous exam , slight ST depression in the lateral leads is new. Chest x-ray read as no evidence of acute cardiopulmonary disease. Transthoracic echocardiogram read as estimated EF 45% to 50%, pseudonormal left ventricular filling pattern, abnormal relaxation, moderate concentric hypertrophy, systolic function mildly reduced. Left atrium is severely dilated. Mitral valve consistent with mild stenosis. Aortic valve findings consistent with severe stenosis, the stenosis severely has increased in comparison with study from May 2016. Mild regurgitation. Peak systolic velocity is 5 m/sec with a systolic gradient of 61 mmHg. Peak systolic gradient is 100 mmHg. The LVOT to aortic valve VTI ratio is 0.2. The valve area with peak velocity method is 0.66 cm2. The valve area by mean velocity method is 0.7 cm2. Tricuspid valve, there is mild regurgitation. Pulmonic valve , there is trace regurgitation. It shows a decreased ejection fraction from 60 % to 65% in 2017 with new wall motion abnormalities seen and progression of aortic stenosis. Hypokinesis of the mid apical anterior, mid anteroseptal, mid apical inferior, basal mid inferolateral, mid anterolateral, apical septal, apical lateral, and apical myocardium. MEDICATIONS: Inpatient medications at the time of transfer: 1. Tylenol 650 mg p.o. q.4 hours as needed. 2. Aspirin 81 mg p.o. daily. 3. Lipitor 20 mg p.o. at bedtime. 4. Vitamin D 1000 units p.o. daily. 5. Clopidogrel 75 mg p.o. daily. 6. Vitamin B12 1000 mcg p.o. daily as needed. 7. Benadryl p.o. 25 mg p.o. at bedtime as needed. 8. Heparin drip 25,000 units in 500 mL per heparin drip protocol, currently running at 15 mL an hour. 9. Multivitamin 1 tab p.o. daily. 10. Magnesium oxide 500 mg p.o. daily. 11. Pantoprazole 40 mg p.o. b.i.d. HOSPITAL COURSE: This is a brief summary of the patient's presentation. For more details, please see the history and physical from Dasha Canseco NP, on 09/19/18 as well as a consultation from Maco Carbajal MD, on 09/19/18. In brief, the patient is an 88-year-old female with the past medical history significant for the above who presented to the emergency department after in the last 2 weeks she has had 2 episodes where with exertion, she got very short of breath and felt palpitations with a regular rhythm. This resolved after approximately 10 minutes both times; the most recent time, she was doing water aerobics and her symptoms did not go away with rest. She called can ambulance and the patient was feeling better. The patient came to the emergency department, had diffuse ST segment depressions as above, elevated troponin. The patient in the emergency department was seen in consultation by Dr. Maco Carbajal, who did a transthoracic echocardiogram read as above, which showed severe aortic stenosis and new decreased ejection fraction. Dr. Carbajal recommended a cardiac catheterization and consideration for transthoracic aortic valve replacement. 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 The patient was started on heparin drip with no substantial decrease in her hemoglobin. The patient's troponin peaked at 0.85. The patient had a lipid profile showing LDL cholesterol of 40. The patient had no other signs of infection. The patient was initially borderline hypertensive on admission, and with the discontinuation of her amlodipine and ramipril for afterload reduction, her blood pressure actually decreased. The patient is on 2 L of oxygen, was saturating very well. The patient has a history of bradycardia with beta- blockers, so these were not given. The patient is not bradycardic at this time. The patient on 09/20/18 is feeling well, but is not exerting herself. The patient denies any blood in her stool, blood in her urine. There are no signs of bleeding as well as no continued abdominal pain. The patient's condition is guarded. At this time, there is concern of NSTEMI and severe symptomatic aortic stenosis and she is being transferred to higher level of care for consideration of catheterization and aortic valve replacement. PHYSICAL EXAMINATION: On the day of discharge, the patient is an 88-year-old female who appears the stated age, sitting comfortably in bed, in no acute distress. Vital Signs: At the time of evaluation, temperature 98.1, pulse 65, respiratory rate 18, oxygen saturation 100% on 2 L, blood pressure 110/44. HEENT: Head normocephalic, atraumatic. Sclerae anicteric. No conjunctival injection. Nasal mucosa moist. Oral mucosa moist. No oropharyngeal erythema, discharge, or exudate. Neck: Supple and nontender. No lymphadenopathy. No carotid bruits auscultated. No JVD. Cardiac: Regular rate and rhythm. Grade 4/6 systolic ejection murmur heard best at the right upper sternal border with no S2. No other adventitious heart sounds. Pulses are 2+ in the dorsalis pedis , posterior tibialis, and radial areas. Trace bilateral lower extremity edema. No calf tenderness bilaterally. Respiratory: Clear to auscultation bilaterally. No wheezes or rhonchi. Good air exchange bilaterally. Abdomen: Soft, nontender, and nondistended. Bowel sounds present. Normoactive in all 4 quadrants. No hepatosplenomegaly. No abdominal bruits auscultated. No hepatojugular reflux. Genitourinary: No suprapubic or CVA tenderness. Skin: Clear, dry, and intact. No rashes. Neuro: Cranial nerves II through XII intact. No focal deficits. Alert and oriented x3. Psychiatric: Pleasant and cooperative. TRANSFER PLAN: The patient will be transferred to [facility]. The patient's case has already been discussed with Dr. Diop of Interventional Cardiology by Dr. Carbajal of Cardiology at [facility]. The patient has been accepted by Dr. Heard who is the hospitalist at [facility]. The patient will be continued on a heparin drip until her catheterization. As recommended by Cardiology, the patient is already on dual antiplatelet therapy. The patient is not able to tolerate beta-blockers. The patient's afterload and negative ionotropic agents should be avoided given the patient's aortic stenosis. The patient is currently hemodynamically stable and is appropriate for a telemetry bed. The patient is on a heart-healthy diet without caffeine. No fluids are indicated at this time. The patient will be transferred via BLS to [facility]. TIME SPENT: Approximately 60 minutes was spent on this transfer, 30 of which was spent [id number] with the patient and the family obtaining history and physical and discussing treatment plan. This plan has been discussed with my attending, Dr. Bel Hernandez, and she is in agreement. VIKI ACHARYA [id number]/CPS #: [id number]
--- NOTE | 2018-09-20 12:40 | PN ---
Subjective Date of Service: 09/20/18 - CC: SOB Interval History: The patient's breathing has been normal since admission. No chest pain at any time. Medications Active Medications: Acetaminophen (Tylenol Tab*) 650 mg PO Q4H PRN PRN Reason: MILD PAIN or TEMP > 100.4 Aspirin (Aspirin Ec Tab*) 81 mg PO DAILY [facility] Last Admin: 09/20/18 09:18 Dose: 81 mg Atorvastatin Calcium (Lipitor*) 10 mg PO BEDTIME [facility] Last Admin: 09/19/18 20:00 Dose: 10 mg Cholecalciferol (Vitamin D Tab*) 1,000 units PO QAM [facility] Last Admin: 09/20/18 09:18 Dose: 1,000 units Clopidogrel Bisulfate (Plavix Tab*) 75 mg PO DAILY [facility] Last Admin: 09/20/18 09:18 Dose: 75 mg Cyanocobalamin (Vitamin B12 Tab*) 1,000 mcg PO DAILY [facility] Last Admin: 09/20/18 09:18 Dose: 1,000 mcg Diphenhydramine HCl (Benadryl Po*) 25 mg PO BEDTIME PRN PRN Reason: INSOMNIA Last Admin: 09/19/18 22:39 Dose: 25 mg Heparin Sodium/Dextrose (Heparin Drip 25,000 Units(*)) 25,000 units in 500 mls @ 0 mls/hr IV PER RATE [facility]; Protocol Last Admin: 09/20/18 11:58 Dose: 13 mls/hr Multivitamins/Minerals (Theragran/Minerals Tab*) 1 tab PO DAILY [facility] Last Admin: 09/20/18 09:19 Dose: 1 tab Non-Formulary Medication (Magnesium Oxide [Magnesium]) 500 mg PO DAILY [facility] Last Admin: 09/20/18 10:40 Dose: Not Given Pantoprazole Sodium (Protonix Tab*) 40 mg PO BID [facility] Last Admin: 09/20/18 09:19 Dose: 40 mg Objective Vital Signs: Temp Pulse Resp BP Pulse Ox 98.1 F 88 18 125/93 99 09/20/18 11:15 09/20/18 11:15 09/20/18 11:15 09/20/18 11:15 09/20/18 11:15 Oxygen Devices in Use Now: None, Nasal Cannula Appearance: Short older woman, daughter and friend in the room, eating, in no distress. Eyes: No Scleral Icterus, PERRLA Ears/Nose/Mouth/Throat: Mucous Membranes Moist Neck: Trachea Midline, No Thyroid Enlargement, Masses Respiratory: Symmetrical Chest Expansion and Respiratory Effort, Clear to Auscultation Cardiovascular: RRR - loud SM USB. Abdominal: NL Sounds; No Tenderness; No Distention Extremities: No Edema - warm Skin: No Rash or Ulcers Neurological: Alert and Oriented x 3, NL Muscle Strength and Tone Lines/Tubes/Other Access: Clean, Dry and Intact Peripheral IV Laboratory Results: 09/20/18 06:55 09/20/18 05:57 INR (Anticoag Therapy) 1.15 (0.82-1.09) H 09/20/18 02:28 APTT 49.3 seconds (26.0-38.0) H 09/20/18 10:47 Total Bilirubin 0.30 mg/dL (0.2-1.0) 09/19/18 10:50 AST 21 U/L (13-39) 09/19/18 10:50 ALT 13 U/L (7-52) 09/19/18 10:50 Alkaline Phosphatase 57 U/L (34-104) 09/19/18 10:50 Total Protein 6.7 g/dL (6.4-8.9) 09/19/18 10:50 Albumin 4.0 g/dL (3.2-5.2) 09/19/18 10:50 Globulin 2.7 g/dL (2-4) 09/19/18 10:50 Albumin/Globulin Ratio 1.5 (1-3) 09/19/18 10:50 Triglycerides 176 mg/dL 09/20/18 05:57 Cholesterol 117 mg/dL 09/20/18 05:57 LDL Cholesterol 40 mg/dL 09/20/18 05:57 HDL Cholesterol 41.7 mg/dL 09/20/18 05:57 09/19/18 09/19/18 09/19/18 10:50 14:40 18:38 Troponin I 0.63 H* 0.59 H* 0.85 H* 09/19/18 09/20/18 09/20/18 22:25 02:28 05:57 Troponin I 0.82 H* 0.85 H* 0.63 H* Diagnostic Imaging: *[facility]* Transthoracic echo Patient: Latha Soni : 1930 Study Date: 09/19/2018 Age: 88 Gender: F HR: 61 bpm Height: 59 in /149.9 cm BSA: 1.57 m^2 Weight: 136.7 lb /62.1 kg BMI: 27.7 kg/m^2 *Digital Content Coordinator: * Erica Milton [facility] *Referring Physician: * Maco Carbajal MD *Reading Physician: * Maco Carbajal MD Indications: SOB. Abnormal EKG. Aortic Valve Disorder. History: Cerebrovascular accident. PMH: Myocardial infarction. Risk factors: Former tobacco use. Hypertension. Diabetes mellitus. Conclusions Summary: - Left ventricle: There is moderate concentric hypertrophy. Systolic function is mildly reduced. The estimated ejection fraction is 45-50%. Systolic function is worse from the study of May 2016. Features are consistent with a pseudonormal left ventricular filling pattern, with concomitant abnormal relaxation and increased filling pressure (grade 2 diastolic dysfunction). - Left atrium: The atrium is severely dilated. - Mitral valve: The findings are consistent with mild stenosis. There is moderate regurgitation. - Aortic valve: The findings are consistent with severe stenosis. Stenosis severity has increased in comparison with the study of May 2016. There is mild regurgitation. The peak systolic velocity is 5 m/sec. The mean systolic gradient is 61.0 mm Hg. -Mild tricuspid insufficiency (partial report) Assessment/Plan 88 yo female with significant JOHNSON with her usual pool aerobics with elevated troponins, progressed to severe and EF decreased from 65% to 45%. Hx CAD, distant NSTEMI and ECG changes on presentation yesterday, PVD (LICA moderate occlusion 2014) and PUD with anemia. Plan in place via Dr Carbajal to transfer to [facility] for cath, evaluation for AVR ( TAVR vs SAVR). Patient to minimize activity. Many questions answered by the patient and family including expectation of cath , WENDY, evaluations by surgeons and cardiologists. From my standpoint would stop plavix, but defer to Dr Diop/[facility] team. Stable for transfer. senior care follow up will be with Dr Merida.
== END 2018-09-20 12:55 | disposition short-term general hospital (02) | DRG 281 ==
LOC: ED 10:05 → MEDTELE 17:14
PROVIDERS: ADMIT Internal Medicine; ATTEND Internal Medicine
DX: I21.4 Non-ST elevation (NSTEMI) myocardial infarction (principal); I50.20 Unspecified systolic (congestive) heart failure; I35.0 Nonrheumatic aortic (valve) stenosis; I11.0 Hypertensive heart disease with heart failure; E78.5 Hyperlipidemia, unspecified; K25.9 Gastric ulcer, unspecified as acute or chronic, without hemorrhage or perforation; E89.2 Postprocedural hypoparathyroidism; D64.9 Anemia, unspecified; Z66 Do not resuscitate; I25.10 Atherosclerotic heart disease of native coronary artery without angina pectoris; M19.90 Unspecified osteoarthritis, unspecified site; E11.51 Type 2 diabetes mellitus with diabetic peripheral angiopathy without gangrene; I25.2 Old myocardial infarction; Z79.82 Long term (current) use of aspirin; Z79.02 Long term (current) use of antithrombotics/antiplatelets; Z90.49 Acquired absence of other specified parts of digestive tract; Z88.8 Allergy status to other drugs, medicaments and biological substances; Z88.1 Allergy status to other antibiotic agents; Z80.0 Family history of malignant neoplasm of digestive organs; Z87.891 Personal history of nicotine dependence; Z86.73 Personal history of transient ischemic attack (TIA), and cerebral infarction without residual deficits; Z87.442 Personal history of urinary calculi; Z98.42 Cataract extraction status, left eye; Z98.41 Cataract extraction status, right eye; Z82.49 Family history of ischemic heart disease and other diseases of the circulatory system
CPT/HCPCS: 36415; 71045; 80048; 80053; 80061; 81003; 81015; 82270; 83036; 83540; 83550; 83605; 84484; 85025; 85379; 85610; 85730; 87040; 87086; 87641; 93005; 93306; 99285; A9270-GY; J1644

== ENCOUNTER 2018-11-15 13:08 | Emergency (ER) | payer MEDICARE ==
--- OUTSIDE RECORDS SUMMARY | 2018-11-15 13:28 | XMS REPORT | Continuity of Care Document ---
:1930 External Reference #:[id number] Author Name Yara Barahona Care Team Providers Name Role Phone Romana Parnell MD - Internal Medicine Care Team Information Manager Knowledge Los Romero MD - Endocrinology, Care Team Information Manager Knowledge Diabetes & Metabolism Problems Active Problems Provider Date Aortic valve disorder Larry Merida M.D., [facility] Onset: 05/17/2014 Essential hypertension Larry Merida M.D., [facility] Onset: 07/10/2017 Gastric ulcer Carlos Eduardo Galvin MD Onset: 07/01/2018 Note: HP negative Calcium renal calculus Carlso Eduardo Galvin MD Onset: 08/01/1967 Note: several lithotripsies Heart valve replacement Larry Merida M.D., [facility] Onset: 10/10/2018 Social History Type Date Description Comments Sex Unknown Tobacco Use Start: Unknown End: Former Cigarette Smoker quit in 1988 Unknown Smoking Status Reviewed: 10/10/18 Former Cigarette Smoker quit in 1988 ETOH Use Denies alcohol use Recreational Drug Use Never Used Drugs Tobacco Use Start: Unknown End: Patient is a former Unknown smoker Exercise Type/Frequency Exercises regularly Allergies, Adverse Reactions, Alerts Active Allergies Reaction Severity Comments Date Flexeril Hives, Itching 07/15/2013 Quinine Hives, Itching bradycardia 07/15/2013 Medications Active Medications SIG Qnty Indications Ordering Date Provider Plavix Please take one Unknown 04/22/2011 75mg Tablets tablet in the evening Metformin HCL 1 po twice daily Romana Parnell, 05/02/1997 850mg Am/PM MD Tablets Colace 1 tab every 12 hours Unknown 100mg Capsules as needed for constipation Aspirin 81 1 by mouth every day Unknown 81mg Tablets Iron High-Potency 1 by mouth daily Unknown 325mg Tablets Nitroglycerin 1 sl q5mins x3 as Unknown 0.4mg needed for chest Tablets Sub pain Metoprolol Tartrate 1/2 tab by mouth Unknown twice daily 25mg Tablets Simvastatin 1 tab by mouth daily Unknown Pantoprazole Sodium 1 by mouth twice Unknown daily 40mg Tablets DR Blink 1 drop each eye Unknown three a day Preservision Areds 1 tab by mouth daily Unknown Tablets Magnesium 1 by mouth every day Unknown 500mg Capsules Benadryl 1-2 tabs hs as Unknown 25mg Tablets needed Acetaminophen as needed Unknown 500mg Tablets Coenzyme Q10 1 by mouth every day Unknown 200mg Capsules Centrum Silver 1 by mouth every day Unknown Tablets Vitamin D3 1 by mouth every day Unknown 1000Unit Capsules Vitamin B-12 1 by mouth every day Unknown 1000mcg Tablets Ramipril 1 by mouth every day Unknown 10mg Capsules History Medications Omeprazole 1 by mouth every Rosalba Curran NP 08/08/2018 - 20mg day 08/08/2018 Capsules Omeprazole Please take one 180caps Rosalba Curran NP 08/08/2018 - 20mg tablet in the 10/09/2018 Capsules morning and one at night 1/2 hour before meal Omeprazole Please take one 180caps Rosalba Curran NP 05/31/2018 - 20mg tablet in the 08/08/2018 Capsules morning and one at night 1/2 hour before meal Medications Administered in Office Medication SIG Qnty Indications Ordering Provider Date Depomedrol 40MG Ruma Burdick M.D. 04/05/2016 Injection Depomedrol 40MG Ruma Burdick M.D. 08/25/2015 Injection Depomedrol 80MG Ruma Burdick M.D. 05/27/2014 Injection Inj, Regadenoson, 0.1 MG Bladimir Hyde M.D. 04/28/2014 Injection Technetium TC 99M Tetrofosmin, Bladimir Hyde, M.D. 04/28/2014 Per Unit Dose Up To 40 Millicuries Injection Depomedrol 80MG Ruma Burdick M.D. 12/31/2013 Injection Immunizations Description No Information Available Vital Signs Date Vital Result Comment 10/10/2018 10:52am Weight 138.00 lb Heart Rate 52 /min BP Systolic Sitting 144 mmHg Ra Regular Cuff BP Diastolic Sitting 56 mmHg Ra Regular Cuff BP Systolic Standing 144 mmHg Ra Regular Cuff BP Diastolic Standing 46 mmHg Ra Regular Cuff Respiratory Rate 16 /min Pain Level 4 shoulder pain O2 % BldC Oximetry 96 % 07/31/2018 9:29am Height 59 inches 4'11" Weight 136.00 lb Heart Rate 54 /min BP Systolic 149 mmHg BP Diastolic 61 mmHg O2 % BldC Oximetry 99 % BMI (Body Mass Index) 27.5 kg/m2 Results Test Date Facility Test Result H/L Range Note CBC Auto 07/31/2018 [facility] White Blood 5.0 10^3/uL Normal 3.5-10.[address] [place] [address] [phone] Red Blood Count 4.51 10^6/uL Normal 3.70-4.87 Hemoglobin 12.3 g/dL Normal 12.0-16.0 Hematocrit 37 % Normal 35-47 Mean Corpuscular Volume 82 fL Normal 80-97 Mean Corpuscular Hemoglobin 27 pg Normal 27-31 Mean Corpuscular HGB Conc 33 g/dL Normal 31-36 Red Cell Distribution Width 15 % Normal 10-15 Platelet Count 285 10^3/uL Normal 150-450 Mean Platelet Volume 8.8 fL Normal 7.4-10.4 Abs Neutrophils 2.8 10^3/uL Normal 1.5-7.7 Abs Lymphocytes 1.5 10^3/uL Normal 1.0-4.8 Abs Monocytes 0.5 10^3/uL Normal 0-0.8 Abs Eosinophils 0.1 10^3/uL Normal 0-0.6 Abs Basophils 0.1 10^3/uL Normal 0-0.2 Abs Nucleated RBC 0.0 10^3/uL Granulocyte % 55.7 % Lymphocyte % 30.7 % Monocyte % 10.0 % Eosinophil % 2.5 % Basophil % 1.1 % Nucleated Red Blood Cells % 0.0 Comp Metabolic 07/31/2018 [facility] Sodium 138 mmol/L Normal 135-[address] [place], [place] [id number] [phone] Potassium 4.4 mmol/L Normal 3.5-5.0 Chloride 102 mmol/L Normal 101-111 Co2 Carbon Dioxide 29 mmol/L Normal 22-32 Anion Gap 7 mmol/L Normal 2-11 Glucose 122 mg/dL High 70-100 Blood Urea Nitrogen 15 mg/dL Normal 6-24 Creatinine 0.80 mg/dL Normal 0.51-0.95 BUN/Creatinine Ratio 18.8 Normal 8-20 Calcium 10.1 mg/dL Normal 8.6-10.3 Total Protein 7.0 g/dL Normal 6.4-8.9 Albumin 4.2 g/dL Normal 3.2-5.2 Globulin 2.8 g/dL Normal 2-4 Albumin/Globulin Ratio 1.5 Normal 1-3 Total Bilirubin 0.30 mg/dL Normal 0.2-1.0 Alkaline Phosphatase 59 U/L Normal 34-104 Alt 14 U/L Normal 7-52 Ast 18 U/L Normal 13-39 Egfr Non- 67.5 >60 Egfr 81.7 >60 1 Laboratory test 07/31/2018 [facility] C Reactive < 1.00 Normal <8.[address] Protein mg/L [place], [place] [id number] [phone] Ferritin 10.8 ng/mL Low 11-307 Lipase 52 U/L Normal 11.0-82.0 Laboratory test 07/01/2018 [facility] Surgical SEE RESULT [address] [place] [address] [phone] Laboratory test 07/01/2018 [facility] Clotest SEE RESULT [address] [place] [address] [phone] 1 Because ethnic data is not always readily available, this report includes an eGFR for both -Americans and non- Americans. The National Kidney Disease Education Program (NKDEP) does not endorse the use of the MDRD equation for patients that are not between the ages of 18 and 70, are , have extremes of body size, muscle mass, or nutritional status, or are non- or non-. According to the National Kidney Foundation, irrespective of diagnosis, the stage of the disease is based on the level of kidney function: Stage Description GFR(mL/min/1.73 m(2)) 1 Kidney damage with normal or decreased GFR 90 2 Kidney damage with mild decrease in GFR 60-89 3 Moderate decrease in GFR 30-59 4 Severe decrease in GFR 15-29 5 Kidney failure <15 (or dialysis) 2 SEE RESULT BELOW Name: JERRI SOSA : [address]: Carlos Eduardo Galvin MD Acct: [id number] Unit: [id number] AGE: 88 Location: ENDO Re07/01/18 SEX: F Status: DEP REF SPEC: [id number] ROBERT: 07/01/18- [facility] DR: Carlos Eduardo Galvin MD REQ: [id number] RECD: 07/01/18120 STATUS: ALBERTO LAWRENCE DR: Romana Parnell MD _ ORDERED: LEVEL 4 FINAL DIAGNOSIS Stomach, body, biopsy: -- Body-type gastric mucosa with mild chronic gastritis. -- No evidence of Helicobacter organisms. CLINICAL HISTORY Pain POST-OPERATIVE DIAGNOSIS EGD: esophagus - esophagogastric 36 cm; stomach - bezoar - web distal antrum ; moderate gastritis; duodenum - normal; conclusions: hiatal hernia; esophagitis; antral gastritis with ulcer; bezoar GROSS DESCRIPTION The specimen is received in formalin labeled, Gastric Body Biopsy, and consists of two ryan irregular soft tissue fragments measuring 0.4 x 0.2 x 0.1 cm and 0.6 by up to 0.2 x 0.1 cm which are submitted entirely in one cassette. Signed by and Reported on: Florencia Bailey MD 07/02/18 1103 END OF REPORT DEPARTMENT OF PATHOLOGY, [address] [place] [address] Willian Casillas M.D. Director [facility] # [id number] 3 SEE RESULT BELOW Name: JERRI SOSA : [address]: Carlos Eduardo Galvin MD Acct: [id number] Unit: [id number] AGE: 88 Location: ENDO Re07/01/18 SEX: F Status: REG REF SPEC: [id number] ROBERT: 07/01/[address] [facility] [address]: Carlos Eduardo Galvin MD REQ: [id number] RECD: 07/01/18 STATUS: NICOLAS LAWRENCE DR: Romana Parnell MD _ SOURCE: GAS ANTRUM SPDESC: ORDERED: Clotest Procedure Result Reported Site Clotest Final 07/02/18- 802 ML Clotest Negative * ML - Main Lab . END OF REPORT DEPARTMENT OF PATHOLOGY, [address] [place] [id number] Willian Casillas M.D. Director [facility] # [id number] Procedures Date Code Description Status 10/10/2018 25719 EKG Tracing & Interpretation Completed 09/19/2018 24492 ECHO Transthorasic Realtime 2D W Doppler & Color Flow Completed Hosp 09/19/2018 11713 ECHO Transthorasic Realtime 2D W Doppler & Color Flow Completed Hosp 07/01/2018 58684 Endoscopy Upper GI Biopsy Completed 06/17/2018 18999 EKG Tracing & Interpretation Completed 12/28/2003 [id number] Colonoscopy Completed Medical Devices Description No Information Available Encounters Type Date Location Provider Dx Diagnosis Office Visit 09/20/2018 [facility] Analy Taylor, R06.09 Other forms of 11:11a Of Helper Marble Finisher M.D. 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 breath R94.31 Abnormal electrocardiogram [ECG] [EKG] R79.89 Other specified abnormal findings of blood chemistry I35.0 Nonrheumatic aortic (valve) stenosis I25.10 Athscl heart disease of [place] coronary artery w/o ang pctrs Office Visit 09/19/2018 3:12p [facility] Dasha R06.02 Shortness of Assoc,ji Canseco NP breath Hospitalists D64.9 Anemia, unspecified I10 Essential (primary) hypertension E11.9 Type 2 diabetes mellitus without complications Office Visit 07/31/2018 9:15a [facility] Carlos Eduardo Piña K25.9 Gastric ulcer, MD Kamar unsp as acute or chronic, w/o hemor or perf R10.13 Epigastric pain I10 Essential (primary) hypertension D64.9 Anemia, unspecified Office Visit 06/17/2018 [facility] Loan Puri I35.0 Nonrheumatic 1:45p [facility] megha Merida (digna) Chris, FACC, stenosis [facility] Office Visit 06/05/2018 [facility] Carlos Eduardo NateAmador R10.13 Epigastric pain 3:00p MD Kamar R63.4 Abnormal weight loss Assessments Date Code Description Provider 10/10/2018 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 09/20/2018 R79.89 Other specified abnormal findings of Analy Taylor M.D. blood chemistry 09/20/2018 I35.0 Nonrheumatic aortic (valve) stenosis Analy Taylor M.D. 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 [place] coronary artery without angina pectoris 09/20/2018 I25.2 Old myocardial infarction Analy Taylor M.D. 09/20/2018 R94.31 Abnormal electrocardiogram [ECG] Analy Taylor M.D. [EKG] 09/20/2018 I73.9 Peripheral vascular disease, Analy Taylor M.D. unspecified 09/20/2018 I35.0 Nonrheumatic aortic (valve) stenosis VIKI Kennedy 09/20/2018 I11.0 Hypertensive heart disease with heart VIKI Kennedy failure 09/20/2018 I50.20 Unspecified systolic (congestive) VIKI Kennedy heart failure 09/20/2018 E11.9 Type 2 diabetes mellitus without VIKI Kennedy complications 09/19/2018 R06.02 Shortness of breath Maco Carbajal M.D. 09/19/2018 R94.31 Abnormal electrocardiogram [ECG] Maco Carbajal M.D. [EKG] 09/19/2018 R79.89 Other specified abnormal findings of Maco Carbajal M.D. blood chemistry 09/19/2018 R06.02 Shortness of breath Dasha Canseco NP 09/19/2018 I35.0 Nonrheumatic aortic (valve) stenosis Maco Carbajal M.D. 09/19/2018 R06.02 Shortness of breath Maco Carbajal M.D. 09/19/2018 I25.10 Atherosclerotic heart disease of Maco Carbajal M.D. [place] coronary artery without angina pectoris 09/19/2018 D64.9 Anemia, unspecified Dasha Canseco DIRECTOR OF [employer] 09/19/2018 R94.31 Abnormal electrocardiogram [ECG] Maco Carbajal M.D. [EKG] 09/19/2018 I10 Essential (primary) hypertension Dasha Canseco NP 09/19/2018 E11.9 Type 2 diabetes mellitus without Dasha Canseco NP complications 07/31/2018 K25.9 Gastric ulcer, unspecified as acute Carlos Eduardo Galvin MD or chronic, without hemo 07/31/2018 R10.13 Epigastric pain Carlos Eduardo Galvin MD 07/31/2018 I10 Essential (primary) hypertension Carlos Eduardo Galvin MD 07/31/2018 D64.9 Anemia, unspecified Carlos Eduardo Galvin MD 07/01/2018 K25.9 Gastric ulcer, unsp as acute or Carlos Eduardo Galvin MD chronic, w/o hemor or perf 07/01/2018 T18.2xxA Foreign body in stomach, initial Carlos Eduardo Galvin MD encounter 07/01/2018 R10.13 Epigastric pain Carlos Eduardo Galvin MD 07/01/2018 R63.4 Abnormal weight loss Carlos Eduardo Galvin MD 07/01/2018 K44.9 Diaphragmatic hernia without Carlos Eduardo Galvin MD obstruction or gangrene 06/17/2018 I35.0 Nonrheumatic aortic (valve) stenosis Larry Merida M.D. , [facility], [facility] 06/05/2018 R10.13 Epigastric pain Carlos Eduardo Galvin MD 06/05/2018 R63.4 Abnormal weight loss Carlos Eduardo Galvin MD Plan of Treatment Future Appointment(s):10/30/2018 10:00 am - Nurse Visit IC at [facility]10/27/2018 1:00 pm - Ica ECHO Schedule at [facility]2018 4:00 pm - Carlos Eduardo Galvin MD at [facility] [id number]/12/2019 1:45 pm - Larry Merida M.D., [facility], FAST[facility] at [facility]10/10/2018 - Larry Merida M.D., [facility], SQQWNW95.10 Atherosclerotic heart disease of [place] coronary artery without angina tnhrzkylR57.2 Presence of prosthetic heart valveNew Therapy:Cardiac RehabComments:As discussed, I will refer you to cardiac rehab.Follow up:as scheduled for Abnormal electrocardiogram [ECG] [EKG] Functional Status Description No Information Available Mental Status Description No Information Available Referrals Refer to Reason for Referral Status Appt Date Los Romero MD Created [address] [place] [phone]
--- OUTSIDE RECORDS SUMMARY | 2018-11-15 13:28 | XMS REPORT | Continuity of Care Document ---
:1930 External Reference #:[id number] Author Name Carlos Eduardo Galvin MD (transmitted by agent of provider Sue Bird) Address [address] [place] [address] Care Team Providers Name Role Phone Romana Parnell MD - Internal Medicine Care Team Information Asphalt Tamper Los Romero MD - Endocrinology, Care Team Information Asphalt Tamper [phone] Diabetes & Metabolism Problems Active Problems Provider Date Aortic valve disorder Larry Merida M.D., [facility] Onset: 05/17/2014 Essential hypertension Larry Merida M.D., [facility] Onset: 07/10/2017 Gastric ulcer Carlos Eduardo Galvin MD Onset: 07/01/2018 Note: HP negative Calcium renal calculus Carlos Eduardo Galvin MD Onset: 08/01/1967 Note: several lithotripsies Heart valve replacement Larry Merida M.D., [facility] Onset: 10/10/2018 Social History Type Date Description Comments Sex Unknown Tobacco Use Start: Unknown End: Former Cigarette Smoker quit in 1988 Unknown Smoking Status Reviewed: 10/30/18 Former Cigarette Smoker quit in 1988 ETOH Use Denies alcohol use Recreational Drug Use Never Used Drugs Tobacco Use Start: Unknown End: Patient is a former Unknown smoker Exercise Type/Frequency Exercises regularly Allergies, Adverse Reactions, Alerts Active Allergies Reaction Severity Comments Date Flexeril Hives, Itching 07/15/2013 Quinine Hives, Itching bradycardia 07/15/2013 Medications Active Medications SIG Qnty Indications Ordering Date Provider Iron High-Potency 1 by mouth daily Unknown 09/30/2018 325mg Tablets Pantoprazole Sodium 1 by mouth twice Unknown 09/29/[address] Aspirin 81 1 by mouth every day Unknown 09/25/2018 81mg Tablets Magnesium 1 by mouth twice a Unknown 06/21/2017 500mg day Capsules Plavix Please take one Unknown 04/22/2011 75mg Tablets tablet in the evening Simvastatin 1 tab by mouth daily Unknown 05/02/2001 Metformin HCL 1 po twice daily Romana Parnell, 05/02/1997 850mg Am/PM MD Tablets Dulcolax 3 by mouth every day Unknown 5mg Tablets Systane apply twice daily as Unknown 0.4-0.3% needed for dry eyes Solution Colace 1 tab every 12 hours Unknown 100mg Capsules as needed for constipation Nitroglycerin 1 sl q5mins x3 as Unknown 0.4mg needed for chest Tablets Sub pain Metoprolol Tartrate 1/2 tab by mouth Unknown twice daily 25mg Tablets Blink 1 drop each eye Unknown three a day Benadryl 1-2 tabs hs as Unknown 25mg [...] 04/28/2014 Injection Technetium TC 99M Tetrofosmin, Bladimir Hyde M.D. 04/28/2014 Per Unit Dose Up To 40 Millicuries Injection Depomedrol 80MG Ruma Burdick M.D. 12/31/2013 Injection Immunizations Description No Information Available Vital Signs Date Vital Result Comment 10/30/2018 4:14pm Height 59 inches 4'11" Weight 137.00 lb Heart Rate 54 /min BP Systolic 136 mmHg BP Diastolic 58 mmHg O2 % BldC Oximetry 98 % BMI (Body Mass Index) 27.7 kg/m2 10/10/2018 10:52am Weight 138.00 lb Heart Rate 52 /min BP Systolic Sitting 144 mmHg Ra Regular Cuff BP Diastolic Sitting 56 mmHg Ra Regular Cuff BP Systolic Standing 144 mmHg Ra Regular Cuff BP Diastolic Standing 46 mmHg Ra Regular Cuff Respiratory Rate 16 /min Pain Level 4 shoulder pain O2 % BldC Oximetry 96 % Results Test Date Facility Test Result H/L Range Note CBC Auto 07/31/2018 [facility] White Blood 5.0 10^3/uL Normal 3.5-10.[address] [place] [address] [phone] Red Blood Count 4.51 10^6/uL Normal 3.70-4.87 [...] Blood Cells % 0.0 Comp Metabolic 07/31/2018 [facility] Sodium 138 mmol/L Normal 135-[address] [place] [address] [phone] Potassium 4.4 mmol/L Normal 3.5-5.0 Chloride 102 [...] Egfr 81.7 >60 1 Laboratory test 07/31/2018 [facility] C Reactive < 1.00 Normal <8.[address] Protein mg/[place] [address] [phone] Ferritin 10.8 ng/mL Low 11-307 Lipase 52 U/L Normal 11.0-82.0 Laboratory test 07/01/2018 [facility] Surgical SEE RESULT [address] [place] [address] [phone] Laboratory test 07/01/2018 [facility] Clotest SEE RESULT [address] [place] [address] [phone] 1 Because ethnic data is not always [...] (or dialysis) 2 SEE RESULT BELOW Name: SHEILAJERRI S : [address]: Carlos Eduardo Galvin MD Acct: [id number] Unit: [id number] AGE: 88 Location: ENDO Re07/01/18 SEX: F Status: DEP REF SPEC: [id number] ROBERT: 07/01/18- SUBM DR: Carlos Eduardo Galvin MD REQ: [id number] RECD: 07/01/181205 STATUS: ALBERTO LAWRENCE DR: Romana Parnell MD [...] 1103 END OF REPORT DEPARTMENT OF PATHOLOGY, [address] [place] [address] Willian Casillas M.D. Director [facility] # [id number] 3 SEE RESULT BELOW Name: JERRI SOSA Arnaud : [address]: Carlos Eduardo Galvin MD Acct: [id number] Unit: [id number] AGE: 88 Location: ENDO Re/21/19 SEX: F Status: REG REF SPEC: [id number] ROBERT: 07/01/18 [facility] DR: Carlos Eduardo Galvin MD REQ: [id number] RECD: 07/01/18 STATUS: NICOLAS LAWRENCE DR: Romana Parnell MD _ SOURCE: [facility]UM [facility]: ORDERED: Clotest Procedure Result Reported Site Clotest Final 07/02/18- 08 ML Clotest Negative * ML - Main Lab . END OF REPORT DEPARTMENT OF PATHOLOGY, [address] [place] [id number] Willian Casillas M.D. Director [facility] # [id number] Procedures Date Code Description Status 10/30/2018 20516 EKG Tracing & Interpretation Completed 10/27/2018 05301 ECHO Transthoracic, Real-Time 2D With Doppler And Color Completed Flow 10/10/2018 75734 EKG Tracing & Interpretation Completed 09/19/2018 57735 ECHO Transthorasic Realtime 2D W Doppler & Color Flow Completed Hosp 09/19/2018 85965 ECHO Transthorasic Realtime 2D W Doppler & Color Flow Completed Hosp 07/01/2018 96693 Endoscopy Upper GI Biopsy Completed 06/17/2018 29472 EKG Tracing & Interpretation Completed 12/28/2003 75922688 Colonoscopy Completed Medical Devices Description No Information Available Encounters Type Date Location Provider Dx Diagnosis Office Visit 10/10/2018 Cardiology Services Larry Puri I25.10 Athscl heart 11:00a Of Datastage Consultant AT Bobby Merida M.D., disease of ken[place] FACC, FASNC coronary artery w/o ang pctrs Z95.2 Presence of prosthetic heart valve R94.31 Abnormal electrocardiogram [ECG] [EKG] Office Visit 09/20/2018 11:11a [facility] Analy Taylor, R06.09 Other forms of Of Datastage Consultant M.D. 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 Office Visit 09/19/2018 3:12p [facility] R06.02 Shortness of Assoc,ji Canseco, ELECTRIC TRACK SWITCH MAINTAINER breath Hospitalists D64.9 Anemia, unspecified I10 Essential (primary) hypertension E11.9 Type 2 diabetes mellitus without complications Office Visit 07/31/2018 9:15a [facility] Gastroenterology Carlos Eduardo Piña K25.9 Gastric ulcer, MD Kamar unsp as acute or chronic, w/o hemor or perf R10.13 Epigastric pain I10 Essential (primary) hypertension D64.9 Anemia, unspecified Office Visit 06/17/2018 [facility] Of Larry Puri I35.0 Nonrheumatic 1:45p megha Fam (valve) Chris, FACC, stenosis FASMN Office Visit 06/05/2018 [facility] Gastroenterology Carlos Eduardo Piña R10.13 Epigastric pain 3:00p MD Kamar R63.4 Abnormal weight loss Assessments Date Code Description Provider 10/27/2018 Z95.2 Presence of prosthetic heart valve Ica ECHO Schedule 10/10/2018 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 09/20/2018 R79.89 Other specified abnormal findings of Analy Taylor M.D. blood chemistry 09/20/2018 I35.0 Nonrheumatic aortic (valve) stenosis Analy Taylor M.D. 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 kenaitze coronary artery without angina pectoris 09/20/2018 I25.2 [...] Atherosclerotic heart disease of Maco Carbajal M.D. kenaitze coronary artery without angina pectoris 09/19/2018 D64.9 Anemia, unspecified Dasha Canseco, ELECTRIC TRACK SWITCH MAINTAINER 09/19/2018 R94.31 Abnormal electrocardiogram [ECG] Maco Carbajal M.D. [EKG] 09/19/2018 I10 Essential (primary) hypertension Dasha Canseco, ELECTRIC TRACK SWITCH MAINTAINER 09/19/2018 E11.9 Type 2 diabetes mellitus without Dashatrudy Canseco, ELECTRIC TRACK SWITCH MAINTAINER complications 07/31/2018 K25.9 Gastric ulcer, unspecified as [...] aortic (valve) stenosis Larry Merida M.D. , [facility] 06/05/2018 R10.13 Epigastric pain Carlos Eduardo Galvin MD 06/05/2018 R63.4 Abnormal weight loss Carlos Eduardo Galvin MD Plan of Treatment Future Appointment(s):12/23/2018 1:45 pm - Larry Merida M.D., [facility] at [facility] Functional Status Description No Information Available Mental Status Description No Information Available Referrals Refer to Reason for Referral Status Appt Los Romero MD Created [address] [place] [id number] [phone]
--- OUTSIDE RECORDS SUMMARY | 2018-11-15 13:28 | XMS REPORT | Continuity of Care Document ---
:1930 External Reference #:[id number] Author Name Larry Merida M.D., [facility] (transmitted by agent of provider Yesenia Albarado) Address [address] [place] [address] Care Team Providers Name Role Phone Romana Parnell MD - Internal Medicine Care Team Information Shrimp Packer Los Romero MD - Endocrinology, Care Team Information Shrimp Packer [phone] Diabetes & Metabolism Problems Active Problems Provider Date Aortic valve disorder Larry Merida M.D., [facility] Onset: 05/17/2014 Essential hypertension Larry Merida M.D., [facility] Onset: 07/10/2017 Gastric ulcer Carlos Eduardo Galvin MD Onset: 07/01/2018 Note: HP negative Calcium renal calculus Carlos Eduardo Galvin MD Onset: 08/01/1967 Note: several lithotripsies Heart valve replacement Larry Merida M.D., [facility] Onset: 10/10/2018 Social History Type Date [...] Result H/L Range Note CBC Auto 07/31/2018 [facility] White Blood 5.0 10^3/uL Normal 3.5-10.[address] [place] [address] [phone] Red Blood Count 4.51 10^6/uL Normal 3.70-4.87 [...] Blood Cells % 0.0 Comp Metabolic 07/31/2018 [facility] Sodium 138 mmol/L Normal 135-[address] [place] [address] [phone] Potassium 4.4 mmol/L Normal 3.5-5.0 Chloride 102 [...] Egfr 81.7 >60 1 Laboratory test 07/31/2018 [facility] C Reactive < 1.00 Normal <8.[address] Protein mg/[place] [address] [phone] Ferritin 10.8 ng/mL Low 11-307 Lipase 52 U/L Normal 11.0-82.0 Laboratory test 07/01/2018 [facility] Surgical SEE RESULT [address] [place] [address] [phone] Laboratory test 07/01/2018 [facility] Clotest SEE RESULT [address] [place] [address] [phone] 1 Because ethnic data is not always [...] Attend Dr: Carlos Eduardo Galvin MD Acct: [id number] Unit: [id number] AGE: 88 Location: ENDO Re07/01/18 SEX: F Status: DEP REF SPEC: [id number] ROBERT: 07/01/18- SUBM DR: Carlos Eduardo Galvin MD REQ: [id number] RECD: 07/01/181203 STATUS: ALBERTO LAWRENCE DR: Romana Parnell MD [...] 1103 END OF REPORT DEPARTMENT OF PATHOLOGY, [address] [place] [address] Willian Casillas M.D. Director [facility] # [id number] 3 SEE RESULT BELOW Name: JERRI SOSA : [address]: Carlos Eduardo Galvin MD Acct: [id number] Unit: [id number] AGE: 88 Location: ENDO Re07/01/18 SEX: F Status: REG REF SPEC: [id number] ROBERT: 07/01/18 [facility] DR: Carlos Eduardo Galvin MD REQ: [id number] RECD: 07/01/18 STATUS: NICOLAS LAWRENCE DR: Romana Parnell MD _ SOURCE: GAS ANTRUM [facility]: ORDERED: Clotest Procedure Result Reported Site Clotest Final 07/02/18802 ML Clotest Negative * ML - Main Lab . END OF REPORT DEPARTMENT OF PATHOLOGY, [address] [place] [address] Willian Casillas M.D. Director [facility] # [id number] Procedures Date Code Description Status 10/10/2018 24908 EKG Tracing & Interpretation Completed 09/19/2018 26286 ECHO Transthorasic Realtime 2D W Doppler & Color Flow Completed Hosp 09/19/2018 33339 ECHO Transthorasic Realtime 2D W Doppler & Color Flow Completed Hosp 07/01/2018 49201 Endoscopy Upper GI Biopsy Completed 06/17/2018 08530 EKG Tracing & Interpretation Completed 12/28/2003 [id number] Colonoscopy Completed Medical Devices Description No Information Available Encounters Type Date Location Provider Dx Diagnosis Office Visit 10/10/2018 Cardiology Larry Puri Z95.2 Presence of 11:00a Services Of Senior Designer/Art Director AT Chris Merida, prosthetic heart [facility] valve Office Visit 09/20/2018 [facility] Analy Taylor, R06.09 Other forms of 11:11a Of Sweta Perez dyspnea R79.89 Other specified abnormal findings of blood chemistry I35.0 Nonrheumatic aortic (valve) stenosis 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 breath R94.31 Abnormal electrocardiogram [ECG] [EKG] R79.89 Other specified abnormal findings of blood chemistry I35.0 Nonrheumatic aortic (valve) stenosis I25.10 Athscl heart disease of [place] coronary artery w/o ang pctrs Office Visit 09/19/2018 3:12p [facility] Dasha R06.02 Shortness of Assoc,ji Canseco NP breath Hospitalists D64.9 Anemia, unspecified I10 Essential (primary) hypertension E11.9 Type 2 diabetes mellitus without complications Office Visit 07/31/2018 9:15a [facility] Gastroenterology Carlos Eduardo Piña K25.9 Gastric ulcer, MD Kamar unsp as acute or chronic, w/o hemor or perf R10.13 Epigastric pain I10 Essential (primary) hypertension D64.9 Anemia, unspecified Office Visit 06/17/2018 [facility] Of Larry Puri I35.0 Nonrheumatic 1:45p [facility] megha Merida (digna) Chris, FAC, stenosis FASCT Office Visit 06/05/2018 [facility] Gastroenterology Carlos Eduardo Piña R10.13 Epigastric pain 3:00p MD Kamar R63.4 Abnormal weight loss Assessments Date Code Description Provider 10/10/2018 Z95.2 Presence of prosthetic heart valve Larry Merida M.D., FACC, FASNC 09/20/2018 R06.09 Other forms of dyspnea Analy Taylor M.D. 09/20/2018 R79.89 Other specified abnormal findings of Analy Taylor M.D. blood chemistry 09/20/2018 I35.0 Nonrheumatic aortic (valve) stenosis Analy Taylor M.D. 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 [place] coronary artery without angina pectoris 09/19/2018 D64.9 Anemia, unspecified Dasha Canseco NP 09/19/2018 R94.31 Abnormal electrocardiogram [ECG] Maco Carbajal [...] aortic (valve) stenosis Larry Merida M.D. , [facility] 06/05/2018 R10.13 Epigastric pain Carlos Eduardo Galvin MD 06/05/2018 R63.4 Abnormal weight loss Carlos Eduardo Galvin MD Plan of Treatment Future Appointment(s):10/30/2018 10:00 am - Nurse Visit IC at [facility]10/27/2018 1:00 pm - Ica ECHO Schedule at [facility]2018 4:00 pm - Carlos Eduardo Galvin MD at [facility] Geflcnufzrdabuzy38/12/2019 1:45 pm - Larry Merida M.D., [facility] at [facility]10/10/2018 - Larry Merida M.D., [facility], AYIDXD21.2 Presence of prosthetic heart valveNew Therapy:Cardiac RehabComments:As discussed, I will refer you to cardiac rehab.Follow up:as scheduled for 12.30 Functional Status Description No Information Available Mental Status Description No Information Available Referrals Refer to Reason for Referral Status Appt Date Los Romero MD Created [address] [place] [address] [address] [place] [phone]
--- NOTE | 2018-11-15 13:34 | UC ---
Skin Complaint HPI - HPI Summary HPI Summary: Started w/ abd tenderness and a small pimple a few days ago and feels it is getting bigger. - History of Current Complaint Chief Complaint: UCSkin Time Seen by Provider: 11/15/18 13:26 Stated Complaint: SKIN COMPLAINT Hx Obtained From: Patient Onset/Duration: Sudden Onset Pain Scale Used: 0-10 Numeric Location: Discrete Aggravating Factor(s): Touch Alleviating Factor(s): Nothing - Allergy/Home Medications Allergies/Adverse Reactions: Allergies Allergy/AdvReac Type Severity Reaction Status Date / Time metoprolol Allergy Severe Excessive Verified 11/15/18 13:36 bradycardia quinine Allergy Severe Rash And Verified 11/15/18 13:36 Itching, Bradycardia cyclobenzaprine Allergy Intermediate Rash And Verified 11/15/18 13:36 [From Flexeril] Itching PMH/Surg Hx/FS Hx/Imm Hx - Additional Past Medical History Additional PMH: anemia Endocrine History: Diabetes Cardiovascular History: Cardiac Disease, Other - valve replacement Other History Of: Anticoagulant Therapy - Surgical History Surgical History: Yes Surgery Procedure, Year, and Place: Lithotripsies 6088-0605. BILATERAL CATARACT REMOVAL. EYE [id number]-2009. TRIGGER FINGER RELEASE-2006. PARATHYROID SURGERY-2002. 1958-GALLBLADDER REMOVED. 1956-D&C. 1938-T&A. 2000-Insertion of kidney stent; - Family History Known Family History: Positive: Cardiac Disease, Hypertension - Social History Alcohol Use: None Substance Use Type: None Smoking Status (MU): Former Smoker Amount Used/How Often: 4-5 CIGARETTES PER DAY X 30-40 YEARS Have You Smoked in the Last Year: No When Did the Patient Quit Smoking/Using Tobacco: 1988 - Immunization History Most Recent Influenza Vaccination: 2018 Most Recent Pneumonia Vaccination: unsure Review of Systems All Other Systems Reviewed And Are Negative: Yes Constitutional: Negative: Fever, Chills, Fatigue Skin: Positive: Other Respiratory: Positive: Negative Cardiovascular: Positive: Negative Neurological: Negative: Weakness, Paresthesia, Numbness Physical Exam Triage Information Reviewed: Yes Appearance: Well-Appearing Vital Signs Reviewed: Yes Neurological: Positive: Alert Skin: Positive: Other - R lower abd has tender erythematous abscess Course/Dx - Course Course Of Treatment: Small abscess at R lower abd. This was cleaned and draped in clean fashion. Abscess was approx 1 in. and tender. I&D performed w/ no complications. shallow so no Iodoform. Keflex given as she is high risk: DM. dressing applied. Although bP is elevated she is involved in cardiac rehab. - Differential Diagnoses - Skin Complaint Differential Diagnoses: Abscess, Other - Diagnoses Provider Diagnosis: Abscess Discharge ED - Sign-Out/Discharge Documenting (check all that apply): Patient Departure All imaging exams completed and their final reports reviewed: No Studies - Discharge Plan Condition: Good Disposition: HOME Prescriptions: Cephalexin CAP* [Keflex CAP*] 500 mg PO TID 10 Days #30 cap Patient Education Materials: Abscess (ED) Referrals: Romana Parnell MD [Primary Care Provider] - Additional Instructions: Please follow up with your pcp in 3-5 days. - Billing Disposition and Condition Condition: GOOD Disposition: Home - Attestation Statements Provider Attestation: Per institutional requirements, I have reviewed the chart, however, I was not consulted specifically or made aware of this patient by the midlevel provider. I did not personally evaluate, interact with , or disposition this patient.
[2018-11-15 13:36] VITALS: BP 177/58
[2018-11-15] MEDS ORDERED: Lidocaine 1% w EPI 1:200,000* SDV 30 ML VIAL INJ ONE (13:52)
== END 2018-11-15 14:37 | disposition home or self-care (01) ==
LOC: UCCORT 13:08
DX: L02.211 Cutaneous abscess of abdominal wall (principal); E11.9 Type 2 diabetes mellitus without complications; R03.0 Elevated blood-pressure reading, without diagnosis of hypertension; Z87.891 Personal history of nicotine dependence
CPT/HCPCS: 10060; 10061; 99212; G0463; J2001